=== PATIENT | male | born 1960 | race African-American/Black ===

== ENCOUNTER 2016-12-20 11:14 | Emergency (ER) | payer MEDICAID ==
[2016-12-20 11:49] LABS: Urine Bacteria Absent (Absent); Urine Bilirubin Negative (Negative); Urine Glucose Negative (Negative); Urine Nitrite Negative (Negative)
[2016-12-20 12:12] LABS: Benzodiazepine Urine Screen None Detected (None Detect)
[2016-12-20 12:31] LABS: Hematocrit 41 % (42-52); Hemoglobin 13.6 g/dl (14.0-18.0); Mean Corpuscular HGB Conc 33 g/dl (31-36); Mean Corpuscular Hemoglobin 29 pg (27-31); Mean Corpuscular Volume 89 fL (80-94); Mean Platelet Volume 8 um3 (7.4-10.4); Red Blood Count 4.63 10^6/ul (4.0-5.4); Red Cell Distribution Width 14 % (10.5-15); White Blood Count 6.7 10^3/ul (3.5-10.8)
[2016-12-20 12:42] LABS: ALT 18 U/L (7-52); AST 17 U/L (13-39); Albumin 4.3 g/dL (3.2-5.2); Alkaline Phosphatase 174 U/L (34-104); Anion Gap 3 mmol/L (2-11); Blood Urea Nitrogen 12 mg/dL (6-24); CO2 Carbon Dioxide 24 mmol/L (22-32); Calcium 9.4 mg/dL (8.6-10.3); Chloride 109 mmol/L (101-111); Globulin 3.4 g/dL (2-4); Glucose 112 mg/dL (70-100); Potassium 4.2 mmol/L (3.5-5.0); Sodium 136 mmol/L (133-145); Total Protein 7.7 g/dL (6.4-8.9)
[2016-12-20 12:50] LABS: Acetaminophen < 15 mcg/mL; Alcohol < 10 mg/dL (<10); Salicylate < 2.50 mg/dL (<30)
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
[2016-12-20 13:00] LABS: TSH (Thyroid Stimulating Horm) < 0.03 mcIU/mL (0.34-5.60)
[2016-12-20 13:15] VITALS: BP 136/85
== END 2016-12-20 13:13 | disposition home or self-care (01) ==
LOC: ED 11:14
DX: Z04.8 Encounter for examination and observation for other specified reasons (principal); Z87.891 Personal history of nicotine dependence
CPT/HCPCS: 36415; 80053; 80307; 80320; 80329; 81003; 81015; 84443; 85025; 87086; 99281; G0480

== ENCOUNTER 2018-02-08 06:23 | Emergency (ER) | payer MEDICARE, MEDICAID ==
--- OUTSIDE RECORDS SUMMARY | 2018-02-08 06:58 | XMS REPORT ---
:1960 External Reference #:[id number] Author Organization [facility] Address [address] [address] Phone [phone] Care Team Providers Name Role Phone Tomasa Doulgas MD Primary Care Physician Unavailable Payers Type Date Identification Numbers Payment Provider Subscriber Medicare Primary Policy Number: [id number] Medicare Trevor Campbell PayID: [id number] [address] [place] [address] Medigap Part B Expires: 2017 Policy Number: [id number] Medicaid Trevor Campbell Group Name: 1 1 [address] PayID: [id number] [place] [address] Medigap Part B Expires: 2017 Policy Number: Medicare Trevor Campbell [id number] PayID: [id number] [address] [place] [address] Medigap Part B Expires: 2016 Policy Number: Medicare Trevor Campbell [id number] PayID: [id number] [address] [place] [address] Medigap Part B Effective: 2016 Policy Number: Medicaid Trevor Campbell [id number] Expires: 2017 Group Name: 1 1 [address] PayID: [id number] [place] [address] Medigap Part B Effective: 2016 Policy Number: Medicaid Trevor Campbell [id number] Group Name: 1 1 [address] PayID: [id number] [place] [address] Problems Date Description Provider Status Onset: 08/27/2011 Electrocardiogram abnormal Baldomero Bean M.D. Onset: 08/27/2011 Benign essential hypertension Baldomero Bean M.D. Onset: 08/27/2011 Automatic implantable cardiac Susana Wilburn Active defibrillator in situ Margarita Onset: 04/16/2014 Cardiomyopathy Tomasa Douglas M.D. Active Note: non ischemic Onset: 04/16/2014 Impotence Tomasa Douglas M.D. Active Note: since 2012 Onset: 08/27/2014 Primary cardiomyopathy Cristi Taylor M.D. Active Onset: 08/27/2014 Tachycardia Cristi Taylor M.D. Active Onset: 08/27/2014 Ventricular flutter Cristi Taylor M.D. Active Onset: 03/04/2015 Subclinical hyperthyroidism Tomasa Douglas M.D. 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 Resolved Resolved: 04/16/2014 Onset: 04/09/2013 Dyspnea Susana Wilburn M.D. Resolved Resolved: 04/16/2014 Family History Date Family Member(s) Problem(s) Comments General Heart Disease Father due to Unknown Causes () Mother due to Unknown Causes () Social History Type Date Description Comments Marital Status Single Lives With Alone Occupation Disabled ETOH Use Denies alcohol use Recreational Drug Use Former Drug User crack cocaine X 20 yr quit 10/01/15 Smoking Patient is a former smoker Daily Caffeine Consumes on average 2 cups of decaff coffee per day Exercise Type/Frequency Does not exercise regularly Allergies, Adverse Reactions, Alerts Date Description Reaction Status Severity Comments 09/06/2007 NKDA active 09/06/2007 NKDA inactive Medications Medication Date Status Form Strength Qnty SIG Indications Ordering Provider Hydrocodone 01/24/ Active Solution 7.5-325mg/ 240ml 10ml-15m Meagan Bitartrate/Aceta 2018 15ML l by B. minophen mouth [place], every [employer] TECH 4-6 hours as needed for pain Methimazole 10/20/ Active Tablets 10mg 30tabs once a E05.90 Tomasa 2017 day Margarita Douglas Lisinopril 10/08/ Active Tablets 10mg 30tabs 1 by Tomasa 2015 mouth Stella, every M.D. day Omeprazole 04/05/ Active Capsules 40mg 180cap Take One K21.[address] grey Capsule Stella, By Mouth M.DSabrina Twice A Day Amlodipine / Active Tablets 10mg 30tabs take 1 Tomasa Besylate 0000 tablet Douglas, by mouth M.D. every day Metoprolol / Active Tablets ER 50mg 45tabs 1 by Qutaybeh Succinate ER 0000 24HR mouth am Asya Wilburn M.D. Meloxicam / Active Tablets 15mg 30tabs take 1 Tomasa 0000 tablet Douglas, by mouth M.D. once every day with food as needed for pain Spironolactone / Active Tablets 25mg 90tabs Take 1 Tomasa 0000 Tablet Douglas, By Mouth M.D. Every Day Digoxin / Active Tablets 125mcg 30tabs Take 1 Tomasa 0000 Tablet Douglas, By Mouth M.D. Every Day Methimazole 10/15/ Hx Tablets 10mg 90tabs 2 tab Tomasa 2015 - every 8 Stella, 10/20/ hrs M.D. 2017 Methimazole 10/08/ Hx Tablets 5mg 15 mg Tomasa 2015 - tid Stella, 10/15/ M.D. 2015 Ibuprofen 05/06/ Hx Tablets 800mg 90tabs 1 by Jluis 2015 - mouth Cristhian, 10/13/ three M.D. 2016 times a day as needed Methimazole 04/15/ Hx Tablets 5mg 30tabs take 1 Tomasa 2015 - tablet Stella, 10/08/ by mouth M.D. 2015 every day Methimazole 03/20/ Hx Tablets 5mg 30tabs 1 tab Tomasa 2014 - daily Stella, 12/11/ M.D. 2015 Hydrocodone-Acet 12/27/ Hx Tablets 10-325mg 60tabs 1 tab by Jluis aminokevin 2014 - mouth Cristhian, 04/05/ twice M.D. 2015 daily as needed [place] 12/03/ Hx Tablets 5-325mg 60tabs 1 by Benjie 2014 - mouth Ashley, 06/30/ every 6 M.D. 2015 hours as needed Bactrim DS 10/15/ Hx Tablets 800-160mg 28tabs 2 tabs Jluis 2013 - by mouth Cristhian, 12/25/ twice a M.D. 2015 day x 7 days Gabapentin 09/25/ Hx Capsules 300mg 60caps 1-2 tabs Jluis 2013 - po qhs Cristhian, 12/11/ M.D. 2016 Ibuprofen 07/05/ Hx Tablets 800mg 90tabs 1 by Jluis 2013 - mouth Cristhian, 12/11/ three M.D. 2016 times a day as needed [place] 06/24/ Hx Tablets 5-325mg 60tabs 1 by Jluis 2013 - mouth Cristhian, 04/05/ twice a M.D. 2015 day as needed Lisinopril 07/14/ Hx Tablets 20mg 90tabs take 1 Tomasa 2010 - tablet Douglas, 10/08/ by mouth M.D. 2016 every day Atenolol 11/27/ Hx Tablets 25mg 90tabs 1 PO qd Qutaybeh 2007 - [facility] Zantac 09/06/ Hx Capsules 150mg 180cap 1 PO bid Qutaybeh 2006 - s prn S. 07/14/ [facility] Lisinopril 09/06/ Hx Tablets 10mg 90tabs 1 PO qd Qutaybeh 2006 - S. 07/14/ [facility] Aldactone 09/06/ Hx Tablets 25mg 90tabs 1 po qd Qutaybeh 2006 - S. 07/14/ Magyd, 2010 M.D. Toprol XL 09/06/ Hx Tablets ER 25mg 30tabs one po Qutaybeh 2006 - 24HR qd S. 09/06/ Maghaydah, 2006 M.D. Digitek 09/06/ Hx Tablets 0.125mg 90tabs 1 po qd Qutaybeh 2006 - S. 02/20/ Akila, 2013 M.D. Toprol XL 09/06/ Hx Tablets ER 25mg 60tabs 1 po bid Qutaybeh 2006 - 24HR S. 09/06/ Akila, 2006 MSabrinaDSabrina Atenolol 09/06/ Hx Tablets 25mg 60tabs 1 PO bid Petertaybmic 2006 - S. 11/27/ Akila, 2007 MSabrinaDSabrina Spironolactone / Hx Tablets 25mg 1 po qd Unknown 0000 - 2010 Clobetasol / Hx Cream 0.05% 60gm apply to Unknown Propionate E 0000 - rash 2 x 02/20/ per day 2013 Q / Hx Tablets 600mg 90tabs 1 po q Unknown 0000 - 8hours 02/20/ prn 2013 Percocet 00/ Hx Tablets 5-325mg 40tabs 1-2 po Unknown 0000 - q4-6h 02/19/ prn pain 2012 Bactrim DS / Hx Tablets 800-160mg 14tabs 1 po bid Unknown 0000 - for 7 02/19/ days 2012 Bactrim DS / Hx Tablets 800-160mg 1 by Unknown 0000 - mouth 09/16/ twice a 2014 day x 6 wks Furosemide / Hx Tablets 20mg 60tabs Take 1 Tomasa 0000 - Tablet Stella, 12/12/ By Mouth M.D. 2015 Every Day Ranitidine HCL / Hx Capsules 150mg 60caps Take One Tomasa 0000 - Capsule Stella, 04/05/ By Mouth M.D. 2015 Twice A Day Bisoprolol / Hx Tablets 5mg 60tabs take 1 Tomasa Fumarate 0000 - tablet Stella, 10/08/ by mouth M.D. 2015 twice a day Immunizations CPT Code Status Date Vaccine Lot # [id number] Given 07/12/2017 Influenza Virus Vaccine, Quadrivalent, Split, Preservative Free [id number] Given 12/14/2016 Tdap - Tetanus/Diptheria/Acellular Pertussis [id number] Given 08/04/2016 Influenza Virus Vaccine, Quadrivalent, Split Virus, Im Use [id number] Given 07/03/2015 Fluzone Vaccine [id number] Given Unknown Pneumonia Vaccine Vital Signs Date Vital Result Comment 01/24/2018 Height 68 inches 5'8" Weight 162.00 lb Heart Rate 72 /min BP Systolic Sitting 124 mmHg BP Diastolic Sitting 80 mmHg Respiratory Rate 18 /min Body Temperature 97.9 F BMI (Body Mass Index) 24.6 kg/m2 01/10/2018 Height 68 inches 5'8" Weight 162.00 lb Heart Rate 60 /min BP Systolic Sitting 144 mmHg BP Diastolic Sitting 80 mmHg Respiratory Rate 16 /min Body Temperature 97.6 F BMI (Body Mass Index) 24.6 kg/m2 01/02/2018 Height 68 inches 5'8" Weight 162.00 lb W/Shoes Heart Rate 62 /min BP Systolic 130 mmHg L/Arm Reg Cuff BP Diastolic 80 mmHg L/Arm Reg Cuff BMI (Body Mass Index) 24.6 kg/m2 Ejection Fraction 40-45% Echocardiogram 01/14/2015 10/20/2017 Weight 158.50 lb Heart Rate 62 /min BP Systolic Sitting 136 mmHg BP Diastolic Sitting 82 mmHg O2 % BldC Oximetry 99 % 12/24/2016 Height 68 inches 5'8" Weight 148.00 lb w/shoes Heart Rate 62 /min BP Systolic Sitting 126 mmHg LA, regular BP Diastolic Sitting 80 mmHg LA, regular BMI (Body Mass Index) 22.5 kg/m2 Ejection Fraction 40-45% echo 01/14/15 12/13/2016 Weight 141.12 lb Heart Rate 68 /min BP Systolic Sitting 128 mmHg BP Diastolic Sitting 74 mmHg Body Temperature 96.8 F O2 % BldC Oximetry 98 % 10/13/2016 Weight 142.00 lb Heart Rate 86 /min BP Systolic Sitting 132 mmHg BP Diastolic Sitting 84 mmHg Respiratory Rate 15 /min Body Temperature 98.0 F O2 % BldC Oximetry 98 % 04/05/2016 Weight 140.00 lb Heart Rate 70 /min BP Systolic Sitting 132 mmHg BP Diastolic Sitting 78 mmHg Body Temperature 97.7 F O2 % BldC Oximetry 98 % 12/12/2015 Height 68 inches 5'8" Weight 149.00 lb w/shoes Heart Rate 76 /min BP Systolic Sitting 136 mmHg LA reg cuff BP Diastolic Sitting 82 mmHg LA reg cuff BMI (Body Mass Index) 22.7 kg/m2 Ejection Fraction 40-45 echo 01/14/15 10/24/2015 Height 68 inches 5'8" Weight 146.00 lb BMI (Body Mass Index) 22.2 kg/m2 09/16/2015 Height 68 inches 5'8" Weight 146.25 lb Heart Rate 72 /min BP Systolic Sitting 142 mmHg BP Diastolic Sitting 72 mmHg Respiratory Rate 14 /min Body Temperature 97.2 F BMI (Body Mass Index) 22.2 kg/m2 08/01/2015 Height 68 inches 5'8" Weight 146.00 lb Pain Level 12 BMI (Body Mass Index) 22.2 kg/m2 07/25/2015 Height 68 inches 5'8" Weight 146.00 lb Pain Level 10 10+ comes and goes BMI (Body Mass Index) 22.2 kg/m2 06/17/2015 Height 68 inches 5'8" Weight 146.50 lb Heart Rate 64 /min BP Systolic Sitting 120 mmHg BP Diastolic Sitting 70 mmHg Respiratory Rate 14 /min Body Temperature 97.2 F BMI (Body Mass Index) 22.3 kg/m2 06/13/2015 Height 68 inches 5'8" Weight 146.00 lb Pain Level 12 BMI (Body Mass Index) 22.2 kg/m2 04/25/2015 Height 68 inches 5'8" Weight 146.00 lb Pain Level 10 BMI (Body Mass Index) 22.2 kg/m2 03/18/2015 Height 68 inches 5'8" Weight 146.25 lb Heart Rate 58 /min BP Systolic Sitting 116 mmHg BP Diastolic Sitting 70 mmHg Respiratory Rate 14 /min Body Temperature 96.8 F BMI (Body Mass Index) 22.2 kg/m2 03/04/2015 Weight 141.00 lb Heart Rate 61 /min BP Systolic Sitting 122 mmHg BP Diastolic Sitting 56 mmHg 02/04/2015 Height 68 inches 5'8" Weight 130.00 lb Heart Rate 64 /min BP Systolic Sitting 112 mmHg BP Diastolic Sitting 68 mmHg Respiratory Rate 14 /min Body Temperature 97.0 F BMI (Body Mass Index) 19.8 kg/m2 01/23/2015 Height 68 inches 5'8" Weight 130.00 lb Pain Level 7 BMI (Body Mass Index) 19.8 kg/m2 12/31/2014 Height 68 inches 5'8" Weight 131.00 lb Heart Rate 68 /min BP Systolic Sitting 138 mmHg BP Diastolic Sitting 80 mmHg Respiratory Rate 14 /min Body Temperature 97.1 F BMI (Body Mass Index) 19.9 kg/m2 12/27/2014 Height 68 inches 5'8" Weight 130.00 lb Pain Level 10 BMI (Body Mass Index) 19.8 kg/m2 12/03/2014 Height 68 inches 5'8" Weight 130.00 lb Pain Level 10 BMI (Body Mass Index) 19.8 kg/m2 11/08/2014 Height 68 inches 5'8" Weight 130.00 lb Pain Level 8 BMI (Body Mass Index) 19.8 kg/m2 10/15/2014 Height 68 inches 5'8" Weight 130.00 lb Pain Level 10 BMI (Body Mass Index) 19.8 kg/m2 09/25/2014 Height 68 inches 5'8" Heart Rate 71 /min BP Systolic 132 mmHg BP Diastolic 81 mmHg 08/30/2014 Height 68 inches 5'8" Weight 123.00 lb Heart Rate 84 /min BMI (Body Mass Index) 18.7 kg/m2 08/29/2014 Height 68 inches 5'8" Weight 123.00 lb Heart Rate 84 /min BP Systolic Sitting 138 mmHg Ra, reg BP Diastolic Sitting 72 mmHg Ra, reg BMI (Body Mass Index) 18.7 kg/m2 08/16/2014 Height 68 inches 5'8" Weight 130.00 lb Body Temperature 98.0 F Pain Level 10 BMI (Body Mass Index) 19.8 kg/m2 08/06/2014 Height 68 inches 5'8" Weight 130.00 lb Body Temperature 98.1 F BMI (Body Mass Index) 19.8 kg/m2 07/23/2014 Height 68 inches 5'8" Weight 130.00 lb Heart Rate 66 /min Pain Level 10 BMI (Body Mass Index) 19.8 kg/m2 07/12/2014 Height 68 inches 5'8" Weight 130.00 lb Pain Level 10 BMI (Body Mass Index) 19.8 kg/m2 07/02/2014 Height 68 inches 5'8" Weight 130.00 lb Heart Rate 66 /min BMI (Body Mass Index) 19.8 kg/m2 06/24/2014 Height 68 inches 5'8" Weight 130.00 lb BMI (Body Mass Index) 19.8 kg/m2 04/11/2014 Height 68 inches 5'8" Weight 135.00 lb Heart Rate 76 /min BP Systolic Sitting 128 mmHg BP Diastolic Sitting 82 mmHg BMI (Body Mass Index) 20.5 kg/m2 02/20/2014 Height 68 inches 5'8" Weight 134.00 lb Heart Rate 76 /min BP Systolic Sitting 118 mmHg BP Diastolic Sitting 66 mmHg BMI (Body Mass Index) 20.4 kg/m2 04/09/2013 Height 68 inches 5'8" Weight 143.00 lb Heart Rate 84 /min BP Systolic Sitting 140 mmHg pt states took meds BP Diastolic Sitting 90 mmHg pt states took meds Respiratory Rate 16 /min BMI (Body Mass Index) 21.7 kg/m2 02/19/2013 Height 68 inches 5'8" Weight 145.00 lb Heart Rate 84 /min BP Systolic Sitting 146 mmHg BP Diastolic Sitting 98 mmHg Respiratory Rate 20 /min BMI (Body Mass Index) 22.0 kg/m2 04/07/2012 Height 68 inches 5'8" Weight 140.00 lb per pt Heart Rate 70 /min BP Systolic 138 mmHg BP Diastolic 88 mmHg BMI (Body Mass Index) 21.3 kg/m2 08/27/2011 Height 68 inches 5'8" Weight 142.00 lb Heart Rate 61 /min BP Systolic Sitting 144 mmHg L BP Diastolic Sitting 86 mmHg L BMI (Body Mass Index) 21.6 kg/m2 07/14/2011 Height 68 inches 5'8" Weight 131.00 lb Heart Rate 60 /min BP Systolic 140 mmHg BP Diastolic 72 mmHg BMI (Body Mass Index) 19.9 kg/m2 04/23/2010 Height 68 inches 5'8" Weight 135.00 lb Heart Rate 100 /min BP Systolic Sitting 150 mmHg BP Diastolic Sitting 86 mmHg BMI (Body Mass Index) 20.5 kg/m2 08/14/2009 Height 68 inches 5'8" Weight 138.00 lb Heart Rate 69 /min BP Systolic Sitting 158 mmHg BP Diastolic Sitting 100 mmHg BMI (Body Mass Index) 21.0 kg/m2 06/10/2008 Height 68 inches 5'8" Weight 130.00 lb Heart Rate 86 /min BP Systolic Sitting 142 mmHg BP Diastolic Sitting 86 mmHg Respiratory Rate 16 /min BMI (Body Mass Index) 19.8 kg/m2 12/07/2007 Height 68 inches 5'8" Weight 134.00 lb Heart Rate 88 /min BP Systolic Sitting 160 mmHg BP Diastolic Sitting 84 mmHg Respiratory Rate 16 /min BMI (Body Mass Index) 20.4 kg/m2 11/27/2007 Height 68 inches 5'8" Weight 136.00 lb Heart Rate 80 /min BP Systolic Sitting 190 mmHg L BP Diastolic Sitting 100 mmHg L BMI (Body Mass Index) 20.7 kg/m2 09/06/2007 Height 68 inches 5'8" Weight 135.00 lb Heart Rate 90 /min BP Systolic Sitting 140 mmHg BP Diastolic Sitting 82 mmHg BP Systolic Standing 130 mmHg BP Diastolic Standing 90 mmHg BP Systolic Lying Down 130 mmHg BP Diastolic Lying Down 90 mmHg Respiratory Rate 18 /min BMI (Body Mass Index) 20.5 kg/m2 Results Test Date Test Result H/L Range Note Laboratory test finding 09/13/2017 Digoxin 1.1 ng/ml 0.8-2.0 Comp Metabolic Panel 09/13/2017 Sodium 137 mmol/L 133-145 Potassium 4.3 mmol/L 3.5-5.0 Chloride 107 mmol/L 101-111 Co2 Carbon Dioxide 24 mmol/L 22-32 Anion Gap 6 mmol/L 2-11 Glucose 91 mg/dL 70-100 Blood Urea Nitrogen 17 mg/dL 6-24 Creatinine 1.29 mg/dL High 0.67-1.17 BUN/Creatinine Ratio 13.2 8-20 Calcium 9.0 mg/dL 8.6-10.3 Total Protein 7.2 g/dL 6.4-8.9 Albumin 4.3 g/dL 3.2-5.2 Globulin 2.9 g/dL 2-4 Albumin/Globulin Ratio 1.5 1-3 Total Bilirubin 0.70 mg/dL 0.2-1.0 Alkaline Phosphatase 88 U/L 34-104 Alt 9 U/L 7-52 Ast 16 U/L 13-39 Egfr Non- 57.4 >60 Egfr 73.8 >60 1 Lipid Profile (Trig/Chol/HDL) 09/13/2017 Triglycerides 59 mg/dL 2 Cholesterol 170 mg/dL 3 HDL Cholesterol 65.9 mg/dL 4 LDL Cholesterol 92 mg/dL 5 Testosterone Free & 09/13/2017 Free Testosterone ng/dl 6.80 ng/dL 3.87-14.7 6 Total Testosterone 340 ng/dL 240-950 7 Laboratory test finding 08/11/2017 Free T4 (Free 0.57 ng/dL Low 0.61-1.12 Thyroxine) Basic Metabolic Panel 08/11/2017 Sodium 134 mmol/L 133-145 Potassium 4.8 mmol/L 3.5-5.0 Chloride 103 mmol/L 101-111 Co2 Carbon Dioxide 25 mmol/L 22-32 Anion Gap 6 mmol/L 2-11 Glucose 91 mg/dL 70-100 Blood Urea Nitrogen 18 mg/dL 6-24 Creatinine 1.21 mg/dL High 0.67-1.17 BUN/Creatinine Ratio 14.9 8-20 Calcium 9.6 mg/dL 8.6-10.3 Egfr Non- 61.8 >60 Egfr 79.5 >60 8 Laboratory test finding 08/11/2017 TSH (Thyroid Stim Horm) 1.84 mcIU/mL 0.34-5.60 Laboratory test finding 08/11/2017 T3 Free 3.20 pg/mL 2.5-3.9 CBC Auto Diff 12/13/2016 White Blood Count 6.5 10^3/uL 3.5-10.8 Red Blood Count 4.49 10^6/uL 4.0-5.4 Hemoglobin 13.1 g/dL Low 14.0-18.0 Hematocrit 39 % Low 42-52 Mean Corpuscular Volume 88 fL 80-94 Mean Corpuscular Hemoglobin 29 pg 27-31 Mean Corpuscular HGB Conc 33 g/dL 31-36 Red Cell Distribution Width 14 % 10.5-15 Platelet Count 304 10^3/uL 150-450 Mean Platelet Volume 9 um3 7.4-10.4 Abs Neutrophils 3.6 10^3/uL 1.5-7.7 Abs Lymphocytes 2.1 10^3/uL 1.0-4.8 Abs Monocytes 0.6 10^3/uL 0-0.8 Abs Eosinophils 0.1 10^3/uL 0-0.6 Abs Basophils 0 10^3/uL 0-0.2 Abs Nucleated RBC 0 10^3/uL Granulocyte % 56.1 % 38-83 Lymphocyte % 33.1 % 25-47 Monocyte % 8.9 % 1-9 Eosinophil % 1.6 % 0-6 Basophil % 0.3 % 0-2 Nucleated Red Blood Cells % 0.1 Laboratory test finding 12/13/2016 Free T4 (Free 1.30 ng/dL High 0.61- 1.12 Thyroxine) TSH (Thyroid Stim Horm) 0.06 mcIU/mL Low 0.34-5.60 T3 Free 4.50 pg/mL High 2.5-3.9 Hepatitis C Antibody Nonreactive Nonreactive HIV 1/2 AB Evaluation 12/13/2016 HIV 1 2 Antibody Nonreactive Nonreactive 9 Laboratory test finding 12/13/2016 Miscellaneous Test See Comment 10 CBC Auto Diff 10/14/2016 White Blood Count 6.3 10^3/uL 3.5-10.8 Red Blood Count 4.77 10^6/uL 4.0-5.4 Hemoglobin 13.4 g/dL Low 14.0-18.0 Hematocrit 41 % Low 42-52 Mean Corpuscular Volume 86 fL 80-94 Mean Corpuscular Hemoglobin 28 pg 27-31 Mean Corpuscular HGB Conc 33 g/dL 31-36 Red Cell Distribution Width 14 % 10.5-15 Platelet Count 292 10^3/uL 150-450 Mean Platelet Volume 8 um3 7.4-10.4 Abs Neutrophils 3.8 10^3/uL 1.5-7.7 Abs Lymphocytes 1.8 10^3/uL 1.0-4.8 Abs Monocytes 0.6 10^3/uL 0-0.8 Abs Eosinophils 0.1 10^3/uL 0-0.6 Abs Basophils 0 10^3/uL 0-0.2 Abs Nucleated RBC 0.01 10^3/uL Granulocyte % 60.1 % 38-83 Lymphocyte % 28.1 % 25-47 Monocyte % 9.9 % High 1-9 Eosinophil % 1.2 % 0-6 Basophil % 0.7 % 0-2 Nucleated Red Blood Cells % 0.1 Laboratory test 10/14/2016 TSH (Thyroid Stim < 0.03 mcIU/mL Low 0.34- 5.60 finding Horm) T3 Free 9.40 pg/mL High 2.5-3.9 Free T4 (Free Thyroxine) 3.44 ng/dL High 0.61-1.12 Comp Metabolic Panel 10/14/2016 Sodium 137 mmol/L 133-145 Potassium 4.2 mmol/L 3.5-5.0 Chloride 105 mmol/L 101-111 Co2 Carbon Dioxide 26 mmol/L 22-32 Anion Gap 6 mmol/L 2-11 Glucose 104 mg/dL High 70-100 Blood Urea Nitrogen 11 mg/dL 6-24 Creatinine 1.03 mg/dL 0.67-1.17 BUN/Creatinine Ratio 10.7 8-20 Calcium 9.8 mg/dL 8.6-10.3 Total Protein 7.8 g/dL 6.4-8.9 Albumin 4.6 g/dL 3.2-5.2 Globulin 3.2 g/dL 2-4 Albumin/Globulin Ratio 1.4 1-3 Total Bilirubin 0.70 mg/dL 0.2-1.0 Alkaline Phosphatase 170 U/L High 34-104 Alt 25 U/L 7-52 Ast 19 U/L 13-39 Egfr Non- 74.7 >60 Egfr 96.1 >60 11 Laboratory test 08/27/2016 Troponin-I (TnI) 0.01 ng/mL <0.03 12 finding Urine Drug SCR ED 08/27/2016 Amphetamine Ur Screen None Detected None Detect [facility] Barbiturates Urine Screen None Detected None Detect Benzodiazepine Urine Screen None Detected None Detect Urine Cannabinoids Screen None Detected None Detect Urine Cocaine Screen None Detected None Detect Urine Opiates Screen None Detected None Detect Urine Phencyclidine Screen None Detected None Detect 13 Inr/Protime 08/27/2016 Inr 0.97 0.89-1.11 Laboratory test finding 08/27/2016 Partial Thrombo Time 31.1 seconds 26.0 -36.3 PTT CBC Auto Diff 08/27/2016 White Blood Count 5.7 10^3/uL 3.5-10.8 Red Blood Count 4.96 10^6/uL 4.0-5.4 Hemoglobin 13.6 g/dL Low 14.0-18.0 Hematocrit 41 % Low 42-52 Mean Corpuscular Volume 83 fL 80-94 Mean Corpuscular Hemoglobin 28 pg 27-31 Mean Corpuscular HGB Conc 33 g/dL 31-36 Red Cell Distribution Width 13 % 10.5-15 Platelet Count 326 10^3/uL 150-450 Mean Platelet Volume 9 um3 7.4-10.4 Abs Neutrophils 3.4 10^3/uL 1.5-7.7 Abs Lymphocytes 1.6 10^3/uL 1.0-4.8 Abs Monocytes 0.5 10^3/uL 0-0.8 Abs Eosinophils 0.1 10^3/uL 0-0.6 Abs Basophils 0.1 10^3/uL 0-0.2 Abs Nucleated RBC 0 10^3/uL Granulocyte % 59.3 % 38-83 Lymphocyte % 28.7 % 25-47 Monocyte % 9.4 % High 1-9 Eosinophil % 1.6 % 0-6 Basophil % 1.0 % 0-2 Nucleated Red Blood Cells % 0.1 Comp Metabolic Panel 08/27/2016 Sodium 135 mmol/L 133-145 Potassium 4.1 mmol/L 3.5-5.0 Chloride 106 mmol/L 101-111 Co2 Carbon Dioxide 22 mmol/L 22-32 Anion Gap 7 mmol/L 2-11 Glucose 98 mg/dL 70-100 Blood Urea Nitrogen 15 mg/dL 6-24 Creatinine 0.83 mg/dL 0.67-1.17 BUN/Creatinine Ratio 18.1 8-20 Calcium 10.1 mg/dL 8.6-10.3 Total Protein 7.6 g/dL 6.4-8.9 Albumin 4.2 g/dL 3.2-5.2 Globulin 3.4 g/dL 2-4 Albumin/Globulin Ratio 1.2 1-3 Total Bilirubin 0.70 mg/dL 0.2-1.0 Alkaline Phosphatase 150 U/L High 34-104 Alt 37 U/L 7-52 Ast 22 U/L 13-39 Egfr Non- 95.8 >60 Egfr 123.3 >60 14 Laboratory test finding 08/27/2016 Troponin-I (TnI) 0.01 ng/mL <0.03 15 Digoxin 0.7 ng/ml Low 0.8-2.0 Thyroxine 25.51 ?g/dL High 6.09-12.23 TSH (Thyroid Stim Horm) 0.03 mcIU/mL Low 0.34-5.60 Free T4 (Free Thyroxine) 4.63 ng/dL High 0.61-1.12 T3 Free 10.40 pg/mL High 2.5-3.9 T3 Total 2.39 ng/mL High 0.87-1.78 Laboratory test 04/15/2016 TSH (Thyroid Stim < 0.03 Low 0.34-5.60 16, 17 finding Horm) ?IU/mL T3 Free 16.10 pg/mL High 2.5-3.9 16, 18 Free T4 (Free Thyroxine) 5.03 ng/dL High 0.61-1.12 16, 19 Basic Metabolic Panel 04/15/2016 Sodium 136 mmol/L 133-145 16 Potassium 4.4 mmol/L 3.5-5.0 16 Chloride 106 mmol/L 101-111 16 Co2 Carbon Dioxide 24 mmol/L 22-32 16 Anion Gap 6 mmol/L 2-11 16 Glucose 86 mg/dL 70-100 16 Blood Urea Nitrogen 16 mg/dL 6-24 16 Creatinine 0.95 mg/dL 0.67-1.17 16 BUN/Creatinine Ratio 16.8 8-20 16 Calcium 9.7 mg/dL 8.6-10.3 16 Egfr Non- 82.0 >60 16 Egfr 105.5 >60 16, 20 Lipid Profile (Trig/Chol/HDL) 04/15/2016 Triglycerides 51 mg/dL 16, 21 Cholesterol 109 mg/dL 16, 22 HDL Cholesterol 42.6 mg/dL 16, 23 LDL Cholesterol 56 mg/dL 16, 24 Laboratory test 10/06/2015 C Reactive Protein < 1.00 mg/L < 5.00 25 finding Laboratory test 07/05/2015 C Reactive Protein 5.90 mg/L High < 5.00 26 finding Basic Metabolic Panel 07/05/2015 Sodium 134 mmol/L 133-145 Potassium 4.6 mmol/L 3.5-5.0 Chloride 103 mmol/L 101-111 Co2 Carbon Dioxide 26 mmol/L 22-32 Anion Gap 5 mmol/L 2-11 Glucose 96 mg/dL 70-100 Blood Urea Nitrogen 14 mg/dL 6-24 Creatinine 1.30 mg/dL High 0.67-1.17 BUN/Creatinine Ratio 10.8 8-20 Calcium 9.3 mg/dL 8.6-10.3 Egfr Non- 57.3 >60 Egfr 73.7 >60 27 GC/Chlamydia Amplified Rna 05/16/2015 Chlamydia trachomatis Rna Negative Negative Neisseria gonorrhoeae (GC) Rna Negative Negative 28 Hepatitis B Sigrid AB Titer 05/16/2015 Hepatitis B Surface AB Reactive Nonreactive Hep B Surf AB Level 59.89 mIU/mL <12 29 Laboratory test finding 05/16/2015 Hepatitis B Surface Ag Nonreactive Nonreactive Hepatitis C Antibody Nonreactive Nonreactive HIV 1/2 AB Evaluation 05/16/2015 HIV 1 2 Antibody Nonreactive Nonreactive 30 Laboratory test 05/16/2015 TSH (Thyroid Stim 0.03 ?IU/mL Low 0.34-5.60 finding Horm) T3 Free 2.90 pg/mL 2.5-3.9 Free T4 (Free Thyroxine) 1.03 ng/mL 0.61-1.12 T3 Total 0.94 ng/mL 0.87-1.78 Thyroperoxidase AB 5.38 IU/mL <9 CBC Auto Diff 04/14/2015 White Blood Count 5.1 10^3/uL 4.8-10.8 Red Blood Count 3.82 10^6/uL Low 4.0-5.4 Hemoglobin 11.8 g/dL Low 14.0-18.0 Hematocrit 37 % Low 42-52 Mean Corpuscular Volume 96 fL High 80-94 Mean Corpuscular Hemoglobin 31 pg 27-31 Mean Corpuscular HGB Conc 32 g/dL 31-36 Red Cell Distribution Width 14 % 10.5-15 Platelet Count 291 10^3/uL 150-450 Mean Platelet Volume 8 um3 7.4-10.4 Abs Neutrophils 2.9 10^3/uL 1.5-7.7 Abs Lymphocytes 1.5 10^3/uL 1.0-4.8 Abs Monocytes 0.6 10^3/uL 0-0.8 Abs Eosinophils 0.1 10^3/uL 0-0.6 Abs Basophils 0 10^3/uL 0-0.2 Abs Nucleated RBC 0.01 10^3/uL Granulocyte % 56.6 % 38-83 Lymphocyte % 28.5 % 25-47 Monocyte % 12.4 % High 1-9 Eosinophil % 2.1 % 0-6 Basophil % 0.4 % 0-2 Nucleated Red Blood Cells % 0.1 Comp Metabolic Panel 04/14/2015 Sodium 138 mmol/L 133-145 Potassium 4.7 mmol/L 3.5-5.0 Chloride 109 mmol/L 101-111 Co2 Carbon Dioxide 23 mmol/L 22-32 Anion Gap 6 mmol/L 2-11 Glucose 97 mg/dL 70-100 Blood Urea Nitrogen 10 mg/dL 6-24 Creatinine 1.18 mg/dL High 0.67-1.17 BUN/Creatinine Ratio 8.5 8-20 Calcium 9.2 mg/dL 8.6-10.3 Total Protein 6.9 g/dL 6.4-8.9 Albumin 4.1 g/dL 3.2-5.2 Globulin 2.8 g/dL 2-4 Albumin/Globulin Ratio 1.5 1-3 Total Bilirubin 0.50 mg/dL 0.2-1.0 Alkaline Phosphatase 80 U/L 34-104 Alt 9 U/L 7-52 Ast 14 U/L 13-39 Egfr Non- 64.1 >60 Egfr 82.4 >60 31 Laboratory test finding 03/31/2015 Potassium 3.9 mmol/L 3.5-5.0 CBC Auto Diff 03/18/2015 White Blood Count 5.5 10^3/uL 4.8-10.8 Red Blood Count 4.01 10^6/uL 4.0-5.4 Hemoglobin 12.7 g/dL Low 14.0-18.0 Hematocrit 38 % Low 42-52 Mean Corpuscular Volume 95 fL High 80-94 Mean Corpuscular Hemoglobin 32 pg High 27-31 Mean Corpuscular HGB Conc 34 g/dL 31-36 Red Cell Distribution Width 15 % 10.5-15 Platelet Count 303 10^3/uL 150-450 Mean Platelet Volume 8 um3 7.4-10.4 Abs Neutrophils 2.8 10^3/uL 1.5-7.7 Abs Lymphocytes 1.9 10^3/uL 1.0-4.8 Abs Monocytes 0.6 10^3/uL 0-0.8 Abs Eosinophils 0.1 10^3/uL 0-0.6 Abs Basophils 0 10^3/uL 0-0.2 Abs Nucleated RBC 0 10^3/uL Granulocyte % 51.5 % 38-83 Lymphocyte % 34.7 % 25-47 Monocyte % 11.4 % High 1-9 Eosinophil % 2.0 % 0-6 Basophil % 0.4 % 0-2 Nucleated Red Blood Cells % 0.1 Comp Metabolic Panel 03/18/2015 Sodium 131 mmol/L Low 133-145 Potassium 5.5 mmol/L High 3.5-5.0 Chloride 104 mmol/L 101-111 Co2 Carbon Dioxide 22 mmol/L 22-32 Anion Gap 5 mmol/L 2-11 Glucose 92 mg/dL 70-100 Blood Urea Nitrogen 25 mg/dL High 6-24 Creatinine 2.00 mg/dL High 0.67-1.17 BUN/Creatinine Ratio 12.5 8-20 Calcium 9.5 mg/dL 8.6-10.3 Total Protein 7.6 g/dL 6.4-8.9 Albumin 4.7 g/dL 3.2-5.2 Globulin 2.9 g/dL 2-4 Albumin/Globulin Ratio 1.6 1-3 Total Bilirubin 0.50 mg/dL 0.2-1.0 Alkaline Phosphatase 95 U/L 34-104 Alt 13 U/L 7-52 Ast 19 U/L 13-39 Egfr Non- 34.9 >60 Egfr 44.8 >60 32 Laboratory test finding 03/18/2015 Digoxin 1.4 ng/ml 0.8-2.0 Thyroxine 8.08 ?g/dL 6.09-12.23 TSH (Thyroid Stim Horm) 0.03 ?IU/mL Low 0.34-5.60 T3 Free 3.10 pg/mL 2.5-3.9 Free T4 (Free Thyroxine) 1.03 ng/mL 0.61-1.12 Laboratory test finding 03/18/2015 C Reactive Protein < 1.00 mg/L &lt ; 5.00 33 Laboratory test finding 02/07/2015 C Reactive Protein < 1.00 mg/L &lt ; 5.00 34 Basic Metabolic Panel 02/07/2015 Sodium 132 mmol/L Low 133-145 Potassium 5.2 mmol/L High 3.5-5.0 Chloride 103 mmol/L 101-111 Co2 Carbon Dioxide 23 mmol/L 22-32 Anion Gap 6 mmol/L 2-11 Glucose 93 mg/dL 70-100 Blood Urea Nitrogen 17 mg/dL 6-24 Creatinine 1.66 mg/dL High 0.67-1.17 BUN/Creatinine Ratio 10.2 8-20 Calcium 9.4 mg/dL 8.6-10.3 Egfr Non- 43.2 >60 Egfr 55.6 >60 35 Laboratory test finding 02/07/2015 Free T4 0.97 ng/mL 0.61-1.12 Total T3 0.94 ng/mL 0.87-1.78 Free T3 2.90 pg/mL 2.5-3.9 TSH (Thyroid Stimulating Horm) < 0.03 IU/mL Low 0.34-5.60 Thyroid Stimulating Immunoglob <1.0 TSIindex <=1.3 36 CBC Auto Diff 01/17/2015 White Blood Count 7.0 10^3/uL 4.8-10.8 Red Blood Count 4.07 10^6/uL 4.0-5.4 Hemoglobin 12.3 g/dL Low 14.0-18.0 Hematocrit 36 % Low 42-52 Mean Corpuscular Volume 89 fL 80-94 Mean Corpuscular Hemoglobin 30 pg 27-31 Mean Corpuscular HGB Conc 34 g/dL 31-36 Red Cell Distribution Width 15 % 10.5-15 Platelet Count 378 10^3/uL 150-450 Mean Platelet Volume 7 um3 Low 7.4-10.4 Abs Neutrophils 4.4 10^3/uL 1.5-7.7 Abs Lymphocytes 1.8 10^3/uL 1.0-4.8 Abs Monocytes 0.7 10^3/uL 0-0.8 Abs Eosinophils 0.1 10^3/uL 0-0.6 Abs Basophils 0 10^3/uL 0-0.2 Abs Nucleated RBC 0 10^3/uL Granulocyte % 62.6 % 38-83 Lymphocyte % 25.8 % 25-47 Monocyte % 9.7 % High 1-9 Eosinophil % 1.5 % 0-6 Basophil % 0.4 % 0-2 Nucleated Red Blood Cells % 0.1 CBC Auto Diff 01/02/2015 White Blood Count 6.3 10^3/uL 4.8-10.8 Red Blood Count 4.27 10^6/uL 4.0-5.4 Hemoglobin 12.4 g/dL Low 14.0-18.0 Hematocrit 39 % Low 42-52 Mean Corpuscular Volume 90 fL 80-94 Mean Corpuscular Hemoglobin 29 pg 27-31 Mean Corpuscular HGB Conc 32 g/dL 31-36 Red Cell Distribution Width 15 % 10.5-15 Platelet Count 400 10^3/uL 150-450 Mean Platelet Volume 8 um3 7.4-10.4 Abs Neutrophils 3.1 10^3/uL 1.5-7.7 Abs Lymphocytes 2.4 10^3/uL 1.0-4.8 Abs Monocytes 0.6 10^3/uL 0-0.8 Abs Eosinophils 0.1 10^3/uL 0-0.6 Abs Basophils 0 10^3/uL 0-0.2 Abs Nucleated RBC 0 10^3/uL Granulocyte % 49.3 % 38-83 Lymphocyte % 38.6 % 25-47 Monocyte % 10.2 % High 1-9 Eosinophil % 1.3 % 0-6 Basophil % 0.6 % 0-2 Nucleated Red Blood Cells % 0.1 Comp Metabolic Panel 01/02/2015 Sodium 130 mmol/L Low 133-145 Potassium 5.4 mmol/L High 3.5-5.0 Chloride 101 mmol/L 101-111 Co2 Carbon Dioxide 23 mmol/L 22-32 Anion Gap 6 mmol/L 2-11 Glucose 110 mg/dL High 70-100 Blood Urea Nitrogen 20 mg/dL 6-24 Creatinine 1.60 mg/dL High 0.67-1.17 BUN/Creatinine Ratio 12.5 8-20 Calcium 9.5 mg/dL 8.6-10.3 Total Protein 7.7 g/dL 6.4-8.9 Albumin 4.3 g/dL 3.2-5.2 Globulin 3.4 g/dL 2-4 Albumin/Globulin Ratio 1.3 1-3 Total Bilirubin 0.30 mg/dL 0.2-1.0 Alkaline Phosphatase 118 U/L High 34-104 Alt 11 U/L 7-52 Ast 15 U/L 13-39 Egfr Non- 45.3 >60 Egfr 58.2 >60 37 Laboratory test finding 01/02/2015 C Reactive Protein 2.46 mg/L < 5.00 38 Wound Culture/Sensi 12/16/2014 Wound/Misc Culture-Gram (SEE NOTE) 39 Stain Laboratory test finding 12/09/2014 Troponin I 0.01 ng/mL <0.03 40 CBC Auto Diff 12/09/2014 White Blood Count 9.1 10^3/uL 4.8-10.8 Red Blood Count 3.98 10^6/uL Low 4.0-5.4 Hemoglobin 11.7 g/dL Low 14.0-18.0 Hematocrit 35 % Low 42-52 Mean Corpuscular Volume 88 fL 80-94 Mean Corpuscular Hemoglobin 29 pg 27-31 Mean Corpuscular HGB Conc 34 g/dL 31-36 Red Cell Distribution Width 15 % 10.5-15 Platelet Count 419 10^3/uL 150-450 Mean Platelet Volume 7 um3 Low 7.4-10.4 Abs Neutrophils 6.0 10^3/uL 1.5-7.7 Abs Lymphocytes 1.9 10^3/uL 1.0-4.8 Abs Monocytes 1.0 10^3/uL High 0-0.8 Abs Eosinophils 0.1 10^3/uL 0-0.6 Abs Basophils 0 10^3/uL 0-0.2 Abs Nucleated RBC 0 10^3/uL Granulocyte % 66.0 % 38-83 Lymphocyte % 21.4 % Low 25-47 Monocyte % 10.8 % High 1-9 Eosinophil % 1.4 % 0-6 Basophil % 0.4 % 0-2 Nucleated Red Blood Cells % 0 Inr/Protime 12/09/2014 Inr 0.97 0.78-1.07 41 Laboratory test finding 12/09/2014 Activated Partial 32.6 seconds 24.0- 36.1 Thrombo Time B Type Natriuretic Peptide 60 pg/mL 42 CKMB 12/09/2014 CKMB ng/mL 1.2 ng/mL 0.6-6.3 Comp Metabolic Panel 12/09/2014 Sodium 135 mmol/L 133-145 Potassium 3.8 mmol/L 3.5-5.0 Chloride 103 mmol/L 101-111 Co2 Carbon Dioxide 26 mmol/L 22-32 Anion Gap 6 mmol/L 2-11 Glucose 104 mg/dL High 70-100 Blood Urea Nitrogen 11 mg/dL 6-24 Creatinine 1.08 mg/dL 0.67-1.17 BUN/Creatinine Ratio 10.2 8-20 Calcium 9.8 mg/dL 8.6-10.3 Total Protein 8.1 g/dL 6.4-8.9 Albumin 4.0 g/dL 3.2-5.2 Globulin 4.1 g/dL High 2-4 Albumin/Globulin Ratio 1.0 1-3 Total Bilirubin 0.30 mg/dL 0.2-1.0 Alkaline Phosphatase 125 U/L High 34-104 Alt 9 U/L 7-52 Ast 13 U/L 13-39 Egfr Non- 71.3 >60 Egfr 91.6 >60 43 Laboratory test finding 12/09/2014 Troponin I 0.01 ng/mL <0.03 44 Laboratory test finding 12/09/2014 Magnesium 2.1 mg/dL 1.9-2.7 Creatine Kinase 94 U/L 10-223 Laboratory test finding 09/09/2014 TSH (Thyroid Stimulating 0.03 IU/mL Low 0.34-5.60 Horm) Free T3 7.10 pg/mL High 2.5-3.9 Free T4 3.16 ng/mL High 0.61-1.12 Thyroglobulin Tumor 09/09/2014 Thyroglobulin Antibody <1.8 IU/mL < 4.0 Marker Thyroglobulin Tumor Marker 44 ng/mL 45 Thyroglobulin Interpretation See Comment 46 Laboratory test finding 09/09/2014 Thyroid Peroxidase 12.19 IU/mL High &lt ;9 Antibodies CBC Auto Diff 09/03/2014 White Blood Count 11.7 10^3/uL High 4.8-10.8 Red Blood Count 3.80 10^6/uL Low 4.0-5.4 Hemoglobin 10.6 g/dL Low 14.0-18.0 Hematocrit 33 % Low 42-52 Mean Corpuscular Volume 86 fL 80-94 Mean Corpuscular Hemoglobin 28 pg 27-31 Mean Corpuscular HGB Conc 32 g/dL 31-36 Red Cell Distribution Width 14 % 10.5-15 Platelet Count 751 10^3/uL High 150-450 Mean Platelet Volume 8 um3 7.4-10.4 Abs Neutrophils 7.9 10^3/uL High 1.5-7.7 Abs Lymphocytes 2.4 10^3/uL 1.0-4.8 Abs Monocytes 1.3 10^3/uL High 0-0.8 Abs Eosinophils 0.1 10^3/uL 0-0.6 Abs Basophils 0 10^3/uL 0-0.2 Abs Nucleated RBC 0 10^3/uL Granulocyte % 67.4 % 38-83 Lymphocyte % 20.4 % Low 25-47 Monocyte % 10.8 % High 1-9 Eosinophil % 1.1 % 0-6 Basophil % 0.3 % 0-2 Nucleated Red Blood Cells % 0 Laboratory test finding 09/03/2014 Digoxin 0.7 ng/ml Low 0.8-2.0 Magnesium 2.0 mg/dL 1.9-2.7 TSH (Thyroid Stimulating Horm) 0.05 IU/mL Low 0.34-5.60 Free T4 2.52 ng/mL High 0.61-1.12 Basic Metabolic Panel 09/03/2014 Sodium 137 mmol/L 133-145 Potassium 3.9 mmol/L 3.5-5.0 47 Chloride 103 mmol/L 101-111 Co2 Carbon Dioxide 25 mmol/L 22-32 Anion Gap 9 mmol/L 2-11 Glucose 77 mg/dL 70-100 Blood Urea Nitrogen 13 mg/dL 6-24 Creatinine 1.20 mg/dL High 0.67-1.17 BUN/Creatinine Ratio 10.8 8-20 Calcium 9.9 mg/dL 8.6-10.3 Egfr Non- 63.1 >60 Egfr 81.1 >60 48 Laboratory test finding 08/16/2014 Anaerobic Culture (SEE NOTE) 49 Wound Culture/Sensi 08/16/2014 Wound/Misc Culture-Gram Stain (SEE NOTE) 50 1 Because ethnic data is not always readily available, this report includes an eGFR for both -Americans and non- Americans. The National Kidney Disease Education Program (NKDEP) does not endorse the use of the MDRD equation for patients that are not between the ages of 18 and 70, are , have extremes of body size, muscle mass, or nutritional status, or are non- or non-. According to the National Kidney Foundation, irrespective of diagnosis, the stage of the disease is based on the level of kidney function: Stage Description GFR(mL/min/1.73 m(2)) 1 Kidney damage with normal or decreased GFR 90 2 Kidney damage with mild decrease in GFR 60-89 3 Moderate decrease in GFR 30-59 4 Severe decrease in GFR 15-29 5 Kidney failure <15 (or dialysis) 2 Desirable: <150 Borderline High: 150-199 High: 200-499 Very High: >500 3 Desirable: <200 Borderline High: 200-239 High: >239 4 Low: <40 Desirable: 40-60 High: >60 5 Desirable: <100 Near Optimal: 100-129 Borderline High: 130-159 High: 160-189 Very High: >189 6 ADDITIONAL INFORMATION Testing performed by [facility]. This test was developed and its performance characteristics determined by [facility] in a manner consistent with CLIA requirements. This test has not been cleared or approved by the U.S. Food and Drug Administration. 7 ADDITIONAL INFORMATION Testing performed by Liquid Chromatography-Tandem Mass Spectrometry (LC-MS/MS). This test was developed and its performance characteristics determined by [facility] in a manner consistent with CLIA requirements. This test has not been cleared or approved by the U.S. Food and Drug Administration. Test Performed by: [facility] [address], [place] [address] 8 Because ethnic data is not always readily available, this report includes an eGFR for both -Americans and non- Americans. The National Kidney Disease Education Program (NKDEP) does not endorse the use of the MDRD equation for patients that are not between the ages of 18 and 70, are , have extremes of body size, muscle mass, or nutritional status, or are non- or non-. According to the National Kidney Foundation, irrespective of diagnosis, the stage of the disease is based on the level of kidney function: Stage Description GFR(mL/min/1.73 m(2)) 1 Kidney damage with normal or decreased GFR 90 2 Kidney damage with mild decrease in GFR 60-89 3 Moderate decrease in GFR 30-59 4 Severe decrease in GFR 15-29 5 Kidney failure <15 (or dialysis) 9 It is recognized that currently available assays for the detection of antibodies to HIV-1 and/or HIV-2 may not detect all infected individuals. HIV antibodies may be undetectable in some stages of the infection and in some clinical conditions. The performance of this assay has not been established for populations of infants or children. Assayed by Chemiluminescence Microparticle Immunoassay on the Siemens Advia Centaur CP. Values obtained with different methods or kits cannot be used interchangeably.The diagnostic specificity of the ADVIA Centaur 1/O/2 Enhanced assay in the low risk population was 99.90% (6052/6058) with a 95% confidence interval of 99.78 to 99.96%. 10 Procedure Result Units Ref Interval Amphetamines, S/P, screen Negative ng/mL Cutoff 30 Methamphetamine, S/P, screen Negative ng/mL Cutoff 30 Barbiturates, S/P, screen Negative ng/mL Cutoff 75 Benzodiazepines, S/P, screen Negative ng/mL Cutoff 75 Buprenorphine, S/P, screen Negative ng/mL Cutoff 1 Cannabinoids, S/P, screen Negative ng/mL Cutoff 30 Cocaine, S/P, Screen Negative ng/mL Cutoff 30 Methadone, S/P, screen Negative ng/mL Cutoff 40 Opiates, S/P, screen Negative ng/mL Cutoff 30 Oxycodone, S/P, screen Negative ng/mL Cutoff 30 Phencyclidine, S/P, Screen Negative ng/mL Cutoff 15 Drug Screen Comments, Serum or Plasma See Note Drug Screen Comments, Serum or Plasma: INTERPRETIVE INFORMATION: Drug Screen 9 Panel, Serum or Plasma - Immunoassay Screen with Reflex to Mass Spectrometry Confirmation/Quantitation 1. Methodology: Qualitative Immunoassay Screen 2. Drugs/Drug classes reported as "Positive" are automatically reflexed to mass spectrometry confirmation/quantitation testing. An immuncassay unconfirmed positive screen result may be useful for medical purposes but does not meet forensic standards. 3. The absence of expected drug(s) and/or drug metabolite(s) may indicate non-compliance, inappropriate timing of specimen collection relative to drug administration, poor drug absorption, or limitations of testing. The concentration at which the screening test can detect a drug or metabolite varies within a drug class. Specimens for which drugs or drug classes are detected by the screen are automatically reflexed to a second, more specific technology (mass spectrometry). The concentration value must be greater than or equal to the cutoff to be reported as positive. Interpretive questions should be directed to the laboratory. 4. For medical purposes only; not valid for forensic use. Test developed and characteristics determined by [facility]. See Compliance Statement B: [employer]MY[facility]/CS Test Performed by: [facility] [address] [place] [address] [email or web address] Ramon Mclaughlin MD - Director of Laboratories 11 Because ethnic data is not always readily available, this report includes an eGFR for both -Americans and non- Americans. The National Kidney Disease Education Program (NKDEP) does not endorse the use of the MDRD equation for patients that are not between the ages of 18 and 70, are , have extremes of body size, muscle mass, or nutritional status, or are non- or non-. According to the National Kidney Foundation, irrespective of diagnosis, the stage of the disease is based on the level of kidney function: Stage Description GFR(mL/min/1.73 m(2)) 1 Kidney damage with normal or decreased GFR 90 2 Kidney damage with mild decrease in GFR 60-89 3 Moderate decrease in GFR 30-59 4 Severe decrease in GFR 15-29 5 Kidney failure <15 (or dialysis) 12 Reference Range and Interpretation: TnI (ng/mL) Interpretation Less Than 0.03 ng/mL Not supportive of diagnosis of [place] 0.03 - 0.50 ng/mL Indeterminate: suggest serial studies if clinically indicated. Greater than 0.5 ng/mL Consistent with diagnosis of [place] 13 The urine specimen was tested at the listed cutoffs: Drug class test level (ng/mL) Amphetamines 500 Barbiturates 200 Benzodiazepine metabolites 200 Cocaine metabolites 150 Cannabinoids 50 Opiates 300 Pcp 25 Specimen was received without chain of custody. Results should be used for medical purposes only. 14 Because ethnic data is not always readily available, this report includes an eGFR for both -Americans and non- Americans. The National Kidney Disease Education Program (NKDEP) does not endorse the use of the MDRD equation for patients that are not between the ages of 18 and 70, are , have extremes of body size, muscle mass, or nutritional status, or are non- or non-. According to the National Kidney Foundation, irrespective of diagnosis, the stage of the disease is based on the level of kidney function: Stage Description GFR(mL/min/1.73 m(2)) 1 Kidney damage with normal or decreased GFR 90 2 Kidney damage with mild decrease in GFR 60-89 3 Moderate decrease in GFR 30-59 4 Severe decrease in GFR 15-29 5 Kidney failure <15 (or dialysis) 15 Reference Range and Interpretation: TnI (ng/mL) Interpretation Less Than 0.03 ng/mL Not supportive of diagnosis of [place] 0.03 - 0.50 ng/mL Indeterminate: suggest serial studies if clinically indicated. Greater than 0.5 ng/mL Consistent with diagnosis of [place] 16 FASTING 17 FASTING 18 FASTING 19 FASTING 20 Because ethnic data is not always readily available, this report includes an eGFR for both -Americans and non- Americans. The National Kidney Disease Education Program (NKDEP) does not endorse the use of the MDRD equation for patients that are not between the ages of 18 and 70, are , have extremes of body size, muscle mass, or nutritional status, or are non- or non-. According to the National Kidney Foundation, irrespective of diagnosis, the stage of the disease is based on the level of kidney function: Stage Description GFR(mL/min/1.73 m(2)) 1 Kidney damage with normal or decreased GFR 90 2 Kidney damage with mild decrease in GFR 60-89 3 Moderate decrease in GFR 30-59 4 Severe decrease in GFR 15-29 5 Kidney failure <15 (or dialysis) 21 Desirable <150 Borderline high 150-199 High 200-499 Very High >500 22 Desirable <200 Borderline high 200-239 High >239 23 Low <40 Desirable: 40-60 High: >60 24 Desirable: <100 mg/dL Near Optimal: 100-129 mg/dL Borderline High: 130-159 mg/dL High: 160-189 mg/dL Very High: >189 mg/dL 25 Acute inflammation: >10.00 26 Acute inflammation: >10.00 27 Because ethnic data is not always readily available, this report includes an eGFR for both -Americans and non- Americans. The National Kidney Disease Education Program (NKDEP) does not endorse the use of the MDRD equation for patients that are not between the ages of 18 and 70, are , have extremes of body size, muscle mass, or nutritional status, or are non- or non-. According to the National Kidney Foundation, irrespective of diagnosis, the stage of the disease is based on the level of kidney function: Stage Description GFR(mL/min/1.73 m(2)) 1 Kidney damage with normal or decreased GFR 90 2 Kidney damage with mild decrease in GFR 60-89 3 Moderate decrease in GFR 30-59 4 Severe decrease in GFR 15-29 5 Kidney failure <15 (or dialysis) 28 Female urine specimens have been self-validated by [facility] and have been granted conditional assay approval by [facility]. 29 This assay does not differentiate between reactivity due to a vaccine-induced immune response or an immune response induced by infection with HBV. 30 It is recognized that currently available assays for the detection of antibodies to HIV-1 and/or HIV-2 may not detect all infected individuals. HIV antibodies may be undetectable in some stages of the infection and in some clinical conditions. The performance of this assay has not been established for populations of infants or children. Assayed by Chemiluminescence Microparticle Immunoassay on the Siemens Advia Centaur CP. Values obtained with different methods or kits cannot be used interchangeably.The diagnostic specificity of the ADVIA Centaur 1/O/2 Enhanced assay in the low risk population was 99.90% (6052/6058) with a 95% confidence interval of 99.78 to 99.96%. 31 Because ethnic data is not always readily available, this report includes an eGFR for both -Americans and non- Americans. The National Kidney Disease Education Program (NKDEP) does not endorse the use of the MDRD equation for patients that are not between the ages of 18 and 70, are , have extremes of body size, muscle mass, or nutritional status, or are non- or non-. According to the National Kidney Foundation, irrespective of diagnosis, the stage of the disease is based on the level of kidney function: Stage Description GFR(mL/min/1.73 m(2)) 1 Kidney damage with normal or decreased GFR 90 2 Kidney damage with mild decrease in GFR 60-89 3 Moderate decrease in GFR 30-59 4 Severe decrease in GFR 15-29 5 Kidney failure <15 (or dialysis) 32 Because ethnic data is not always readily available, this report includes an eGFR for both -Americans and non- Americans. The National Kidney Disease Education Program (NKDEP) does not endorse the use of the MDRD equation for patients that are not between the ages of 18 and 70, are , have extremes of body size, muscle mass, or nutritional status, or are non- or non-. According to the National Kidney Foundation, irrespective of diagnosis, the stage of the disease is based on the level of kidney function: Stage Description GFR(mL/min/1.73 m(2)) 1 Kidney damage with normal or decreased GFR 90 2 Kidney damage with mild decrease in GFR 60-89 3 Moderate decrease in GFR 30-59 4 Severe decrease in GFR 15-29 5 Kidney failure <15 (or dialysis) 33 Acute inflammation: >10.00 34 Acute inflammation: >10.00 35 Because ethnic data is not always readily available, this report includes an eGFR for both -Americans and non- Americans. The National Kidney Disease Education Program (NKDEP) does not endorse the use of the MDRD equation for patients that are not between the ages of 18 and 70, are , have extremes of body size, muscle mass, or nutritional status, or are non- or non-. According to the National Kidney Foundation, irrespective of diagnosis, the stage of the disease is based on the level of kidney function: Stage Description GFR(mL/min/1.73 m(2)) 1 Kidney damage with normal or decreased GFR 90 2 Kidney damage with mild decrease in GFR 60-89 3 Moderate decrease in GFR 30-59 4 Severe decrease in GFR 15-29 5 Kidney failure <15 (or dialysis) 36 Test Performed by: [place] [address] Curing Finisher: Ab Feldman II, M.D., Ph.D. 37 Because ethnic data is not always readily available, this report includes an eGFR for both -Americans and non- Americans. The National Kidney Disease Education Program (NKDEP) does not endorse the use of the MDRD equation for patients that are not between the ages of 18 and 70, are , have extremes of body size, muscle mass, or nutritional status, or are non- or non-. According to the National Kidney Foundation, irrespective of diagnosis, the stage of the disease is based on the level of kidney function: Stage Description GFR(mL/min/1.73 m(2)) 1 Kidney damage with normal or decreased GFR 90 2 Kidney damage with mild decrease in GFR 60-89 3 Moderate decrease in GFR 30-59 4 Severe decrease in GFR 15-29 5 Kidney failure <15 (or dialysis) 38 Acute inflammation: >10.00 39 RUN DATE: 12/16/14 [facility] LIVE PAGE 1 RUN TIME: 1375 [address] [place], [place] [address] Specimen Inquiry Name: AB CAMPBELL : [address]: Jluis Morrow MD Acct: [id number] Unit: [id number] AGE: 54 Location: OR Re12/16/14 SEX: M Status: REG SDC SPEC: [id number] ESTRELLITA: 12/16/[address]: Jluis Morrow MD REQ: [id number] RECD: 12/16/14 STATUS: RES OTHR DR: Tomasa Douglas MD _ SOURCE: [facility] SPDESC:OTHER ORDERED: Culture Stain QUERIES: Specimen Description LEFT ANKLE DEEP CULTURE Procedure Result Verified Site Wound/Misc Gram Stain Final 12/16/14- 543 ML 4+ Neutrophils 2+ Gram Positive Cocci Wound/Misc Culture PENDING END OF REPORT * ML=Testing performed at Main Lab DEPARTMENT OF PATHOLOGY, [address] [place] [address] Ozzy Navarro M.D. Director [facility] # [id number] 40 Reference Range and Interpretation: TnI (ng/mL) Interpretation Less Than 0.03 ng/mL Not supportive of diagnosis of [place] 0.03 - 0.50 ng/mL Indeterminate: suggest serial studies if clinically indicated. Greater than 0.5 ng/mL Consistent with diagnosis of [place] 41 Please note: Effective November 13, 2014, the reference value for this test has changed due to the validation and activation of a new reagent lot number. 42 >100 to <200 pg/mL: likely compensated congestive heart failure (CHF) 200 to 400 pg/mL: likely moderate CHF >400 pg/mL: likely moderate to severe CHF [facility] 43 Because ethnic data is not always readily available, this report includes an eGFR for both -Americans and non- Americans. The National Kidney Disease Education Program (NKDEP) does not endorse the use of the MDRD equation for patients that are not between the ages of 18 and 70, are , have extremes of body size, muscle mass, or nutritional status, or are non- or non-. According to the National [facility], irrespective of diagnosis, the stage of the disease is based on the level of kidney function: Stage Description GFR(mL/min/1.73 m(2)) 1 Kidney damage with normal or decreased GFR 90 2 Kidney damage with mild decrease in GFR 60-89 3 Moderate decrease in GFR 30-59 4 Severe decrease in GFR 15-29 5 Kidney failure <15 (or dialysis) 44 Reference Range and Interpretation: TnI (ng/mL) Interpretation Less Than 0.03 ng/mL Not supportive of diagnosis of [place] 0.03 - 0.50 ng/mL Indeterminate: suggest serial studies if clinically indicated. Greater than 0.5 ng/mL Consistent with diagnosis of [place] 45 REFERENCE VALUE Athyrotic <0.1 Intact Thyroid <=33 46 Thyroglobulin (Tg) levels must be interpreted in the context of TSH levels, serial Tg measurements and radioiodine ablation status. Tg levels of > or=10 ng/mL in athyrotic individuals on suppressive therapy indicate a significant (>25%) risk of clinically detectable recurrent papillary/follicular thyroid cancer. ADDITIONAL INFORMATION PLEASE NOTE: Thyroglobulin flagging is based on athyrotic reference values. The thyroglobulin and thyroglobulin antibody testing methods are immunoenzymatic assays manufactured by [employer]. and performed on the Zlio DXI 800. Values obtained from different assay methods or kits may be different and cannot be used interchangeably. The results cannot be interpreted as absolute evidence for the presence or absence of malignant disease. Test Performed by: [place] [address] Curing Finisher: Prosper Littlejohn M.D. 47 Potassium reference range changed effective 08/18/14 48 Because ethnic data is not always readily available, this report includes an eGFR for both -Americans and non- Americans. The National Kidney Disease Education Program (NKDEP) does not endorse the use of the MDRD equation for patients that are not between the ages of 18 and 70, are , have extremes of body size, muscle mass, or nutritional status, or are non- or non-. According to the National Kid[employer] Foundation, irrespective of diagnosis, the stage of the disease is based on the level of kidney function: Stage Description GFR(mL/min/1.73 m(2)) 1 Kidney damage with normal or decreased GFR 90 2 Kidney damage with mild decrease in GFR 60-89 3 Moderate decrease in GFR 30-59 4 Severe decrease in GFR 15-29 5 Kidney failure <15 (or dialysis) 49 RUN DATE: 08/19/14 [facility] LAB LIVE PAGE 1 RUN TIME: [address] [place] [id number] Specimen Inquiry Name: AB CAMPBELL : [address]: Nicole PATTON Acct: [id number] Unit: [id number] AGE: 54 Location: [facility] Re08/16/14 SEX: M Status: REG REF SPEC: [id number] ESTRELLITA: 08/16/141205 SUBM DR: Nicole PATTON REQ: [id number] RECD: 08/16/144 STATUS: COMP _ SOURCE: WOUND SPDESC:ANKLE LEFT ORDERED: Anaerobic Cult Procedure Result Verified Site Anaerobic Culture Final 08/19/14- 0828 ML Organism 1 PEPTOSTREPTOCOCCI SPP Quantity 3+ Anaerobic sensitivities are not routinely performed. Positive isolates will be saved for one week. Please call the Microbiology Laboratory if susceptibility testing is needed. END OF REPORT * ML=Testing performed at Main Lab DEPARTMENT OF PATHOLOGY, [facility] [employer] [place], [place] [address] Ozzy Navarro M.D. Director [facility] # [id number] RUN DATE: 08/19/14 [facility] LAB LIVE PAGE 1 RUN TIME: 2201 [facility] [employer] [place], [place] [address] Specimen Inquiry Name: AB CAMPBELL : [address]: Nicole PATTON Acct: [id number] Unit: [id number] AGE: 54 Location: [facility] Re08/16/14 SEX: M Status: REG REF SPEC: [id number] ESTRELLITA: 08/16/14-[address]: Nicole PATTON REQ: [id number] RECD: 08/16/14 STATUS: COMP _ SOURCE: ANKLE LEFT SPDESC: ORDERED: Culture Stain QUERIES: Specimen Description LEFT ANKLE WOUND Procedure Result Verified Site Wound/Misc Gram Stain Final 08/16/14- 1657 ML 4+ Neutrophils 4+ Gram Negative Bacilli 4+ Gram Positive Cocci Wound/Misc Culture Final 08/19/14- 0824 ML Organism 1 STAPHYLOCOCCUS AUREUS Quantity 3+ Organism 2 SERRATIA MARCESCENS Quantity 3+ 1. STAPHYLOCOCCUS AUREUS M.I.C. RX --------- ------ Penicillin R Clindamycin <=0.25 S Erythromycin <=0.25 S Gentamicin <=0.5 S Linezolid 2 S Nitrofurantoin <=16 S Oxacillin <=0.25 S * Quinupristin/Dalfopristin <=0.25 S Rifampin <=0.5 S Tetracycline <=1 S Doxycycline - Deduced S * Minocycline - Deduced S Trimethoprim/Sulfamethoxazole <=10 S Vancomycin 1 S CONTINUED ON NEXT PAGE * ML=Testing performed at Main Lab DEPARTMENT OF PATHOLOGY, [facility] [employer] [place], [place] [address] Ozzy Navarro M.D. Director [facility] # [id number] RUN DATE: 08/19/14 [facility] LAB LIVE PAGE 2 RUN TIME: 824 [facility] [place], [place] [address] Specimen Inquiry Patient: AB CAMPBELL [id number] (Continued) Specimen: [id number] Collected: 08/16/14120 Received: 08/16/14-1250 (Continued) Procedure Result Verified Site Wound/Misc Culture Final (continued) 08/19/14- 823 1. STAPHYLOCOCCUS AUREUS (continued) M.I.C. RX --------- ------ Imipenem-Deduced S * Ampicillin/Sulbactam-Deduced S Cefazolin-Deduced S 2. SERRATIA MARCESCENS M.I.C. RX --------- ------ Cefazolin >=64 R Cefepime <=1 S Ceftriaxone <=1 S Ciprofloxacin <=0.25 S Gentamicin <=1 S Levofloxacin 0.25 S Meropenem <=0.25 S Nitrofurantoin 256 R Tetracycline >=16 R Trimethoprim/Sulfamethoxazole <=20 S Amoxicillin/Clavulanic Acid R Aztreonam <=1 S * These antibiotics are not available in the [facility] Formulary Contact the Microbiology Department for any additional antibiotic reporting. Contact the Microbiology Department for any additional antibiotic reporting. END OF REPORT * ML=Testing performed at Main Lab DEPARTMENT OF PATHOLOGY, [address] [place] [address] Ozzy Navarro M.D. Director [facility] # [id number] Procedures Date CPT Code Description Status 01/02/2018 54121 EKG Tracing & Interpretation Completed 11/07/2017 12136 Interrogation Implant Cardiovasc Monitor System Incl Completed Analysis Int 11/07/2017 29819 Interrogation Implant Cardiovasc Monitor System Incl Completed Analysis Int 11/07/2017 89277 Icd Eval W/Iterative Adjustmnt Single Lead Icd Completed 11/07/2017 52317 Icd Eval W/Iterative Adjustmnt Single Lead Icd Completed 08/04/2017 95680 Interrogation Implant Cardiovasc Monitor System Incl Completed Analysis Int 08/04/2017 05078 Icd Eval W/Iterative Adjustmnt Single Lead Icd Completed 12/24/2016 54034 Interrogation Implant Cardiovasc Monitor System Incl Completed Analysis Int 12/24/2016 96995 Icd eval w/iterative adjment single lead Icd Completed 05/12/2016 72671 Interrogation Implant Cardiovasc Monitor System Incl Completed Analysis Int 05/12/2016 11565 Icd Eval W/Iterative Adjustmnt Single Lead Icd Completed 12/12/2015 13763 EKG Tracing & Interpretation Completed 10/22/2015 44641 Icd Check Single,Dual Or Multiple In Person W/ Incl Completed Heart Rhyth 01/29/2015 61538 Icd Check Single,Dual Or Multiple In Person W/ Incl Completed Heart Rhyth 01/14/2015 27099 ECHO Transthoracic, Real-Time 2D With Doppler And Color Completed Flow 12/16/2014 97331 Removal Implant Deep Wire,Screw Nail,Grady Or Plate Completed 12/10/2014 11807 EKG, Interpretation Only Completed 10/21/2014 32398 Icd Check Single,Dual Or Multiple In Person W/ Incl Completed Heart Rhyth 08/27/2014 78805 Icd Check Single,Dual Or Multiple In Person W/ Incl Completed Heart Rhyth 08/16/2014 34819 EKG, Interpretation Only Completed 08/16/2014 28176 Rad Exam; Ankle Limited Completed 07/12/2014 18741 application of short leg splint Completed 07/12/2014 89833 application of short leg splint Completed 07/12/2014 71983 Rad Exam; Ankle Comp Completed 07/12/2014 60210 Rad Exam; Ankle Comp Completed 07/02/2014 52754 application of short leg splint Completed 07/02/2014 97702 application of short leg splint Completed 06/24/2014 75598 Rad Exam; Ankle Comp Completed 06/16/2014 92504 EKG, Interpretation Only Completed 06/15/2014 77798 ORIF Trimalleolar Ankle FX Medial And/Or Lateral Completed Malleolus 06/15/2014 92891 Open TX Of FX Of Weight Bearing Bith Tibia And Fibula Completed 06/15/2014 53320 Open TX Of FX Of Weight Bearing Bith Tibia And Fibula Completed 06/15/2014 03755 Open TX Of FX Of Weight Bearing Bith Tibia And Fibula Completed 06/15/2014 92974 Open TX Of FX Of Weight Bearing Bith Tibia And Fibula Completed 03/26/2013 34412 ECHO Transthoracic, Real-Time 2D With Doppler And Color Completed Flow 02/19/2013 47500 EKG Tracing & Interpretation Completed 02/15/2013 70493 Icd Check Single,Dual Or Multiple In Person W/DR Incl Completed Heart Rhyth 08/31/2012 11072 ECHO Transthoracic, Real-Time 2D With Doppler And Color Completed Flow 08/24/2012 42327 Icd Check Single,Dual Or Multiple In Person W/DR Incl Completed Heart Rhyth 06/08/2012 18193 Icd Check Single,Dual Or Multiple In Person W/DR Incl Completed Heart Rhyth 04/07/2012 86634 EKG Tracing & Interpretation Completed 03/16/2012 86183 Icd Check Single,Dual Or Multiple In Person W/DR Incl Completed Heart Rhyth 11/30/2011 90105 Icd eval w/iterative adjment single lead Icd Completed 08/27/2011 93090 EKG Tracing & Interpretation Completed 08/26/2011 27856 Icd Check Single,Dual Or Multiple In Person W/DR Incl Completed Heart Rhyth 07/14/2011 69436 EKG Tracing & Interpretation Completed 08/26/2010 65335 Selective Coronary Angioplasty Completed 08/26/2010 22558 S/I/R Inj Proc Vent And Or Atrial Completed 08/26/2010 36259 Coronary Angiography Completed 08/26/2010 67404 Coronary Angiography Completed 08/26/2010 99582 Inj Proc LFT Vent/LFT Atrl Angio Completed 08/26/2010 70487 Com RT And LT Catheterization Completed 08/25/2010 60333 ECHO Transthorasic Realtime 2D W Doppler & Color Completed Flow Hosp 08/25/2010 76862 Pulse Wave/Continuous-Interp.RPT Completed 08/25/2010 70499 Color Flow Doppler/Interp & Reprt Completed 02/03/2010 66217 ECHO Transthoracic, Real-Time 2D With Doppler And Color Completed Flow 08/14/2009 51795 EKG Tracing & Interpretation Completed 12/27/2008 49102 Color Doppler Completed 12/27/2008 60492 Pulse Doppler & Continuous Wave Completed 12/27/2008 16058 Echocardiogram Completed 12/27/2008 64586 ECHO Transthoracic, Real-Time 2D With Doppler And Color Completed Flow 06/10/2008 85706 EKG Tracing & Interpretation Completed 05/30/2008 97311 Echocardiogram Completed 05/30/2008 18932 Echocardiogram Completed 05/30/2008 89279 Pulse Doppler & Continuous Wave Completed 05/30/2008 92645 Pulse Doppler & Continuous Wave Completed 05/30/2008 29557 Pulse Doppler & Continuous Wave Completed 05/30/2008 39755 Color Doppler Completed 05/30/2008 45971 Color Doppler Completed 11/24/2007 56941 Echocardiogram Completed 11/24/2007 44845 Echocardiogram Completed 11/24/2007 55687 Echocardiogram Completed 11/24/2007 34559 Pulse Doppler & Continuous Wave Completed 11/24/2007 21862 Pulse Doppler & Continuous Wave Completed 11/24/2007 09690 Color Doppler Completed 11/24/2007 75966 Color Doppler Completed 11/24/2007 68824 Color Doppler Completed 09/06/2007 10383 EKG Tracing & Interpretation Completed 07/07/2007 40525 Color Doppler Completed 07/07/2007 98358 Color Doppler Completed 07/07/2007 43591 Pulse Doppler & Continuous Wave Completed 07/07/2007 07734 Pulse Doppler & Continuous Wave Completed 07/07/2007 64222 Pulse Doppler & Continuous Wave Completed 07/07/2007 09238 Echocardiogram Completed 07/07/2007 71706 Echocardiogram Completed Encounters Type Date Location Provider CPT E/M Dx Office Visit 01/02/2018 11:00a [facility] Susana Wilburn, 09722 I42.9 M.DSabrina Z95.810 E05.90 I36.1 Office Visit 10/20/2017 10:10a [facility] Tomasa Douglas 13897 E05.90 - David Avila T38.2x5A Z23 Office Visit 12/24/2016 8:40a [facility] Susana Wilburn, 60701 I42.9 MJudi R53.83 I36.1 R94.31 Z95.810 Office Visit 12/13/2016 10:10a [facility] Tomasa Douglas 87084 E05.90 - David Avila Z11.4 Z11.59 F10.21 Office Visit 10/13/2016 9:50a [facility] Tomasa Douglas, 02826 E05.90 - David Avila I42.9 D64.9 K21.9 Z11.4 Office Visit 08/28/2016 2:16p [facility] Jazz Lindsey, 79441 R07.9 Assoc,pc SUPPORT SERVICES TECH Hospitalists R00.2 I42.9 I10 Office Visit 08/27/2016 2:16p [facility] Assoc,pc Dewayne Cornell, 51494 R07.9 Hospitalists N.P. R00.2 I42.9 I10 Office Visit 04/05/2016 11:50a [facility] Tomasa Douglas, 73043 E05.80 - Norah Avila E07.9 I42.9 Z13.220 K21.9 Office Visit 12/12/2015 10:20a [facility] Petertamic Wilburn, 61706 R94.31 M.DSabrina I42.9 Z95.810 Office Visit 10/24/2015 10:00a [facility] 78967 M19.072 Inga Avila Office Visit 09/16/2015 8:30a [facility] Rsahel Fuller 94207 M86.672 Infectious Diseases Margarita Rolle Office Visit 08/01/2015 9:20a [facility] 56935 M19.072 Inga Avila Office Visit 06/17/2015 8:30a [facility] Fuller 31601 730.17 Infectious Diseases Margarita Rolle Office Visit 06/13/2015 9:50a [facility] 73365 715.17 CLisa Avila Office Visit 04/25/2015 11:50a [facility] 92554 730.17 CLisa Avila Office Visit 03/18/2015 8:30a [facility] Rashel Fuller 65493 730.17 Infectious Diseases Margarita Rolle Office Visit 03/04/2015 10:30a [facility] Tomasa Douglas, 07611 794.5 Kasi Almazan M.D. 276.7 425.9 242.90 Office Visit 02/04/2015 9:50a [facility] Fernando Rolle, 43485 730.27 Infectious Diseases M.D. 041.11 Office Visit 12/31/2014 8:30a [facility] Fernando Rolle, 36331 996.67 Infectious Diseases M.D. 730.27 008.41 041.85 041.11 Office Visit 12/18/2014 10:38a [facility] Fernando Rolle, 17138 996.67 Infectious Diseases M.DSabrina 730.27 285.9 Office Visit 12/17/2014 11:57a [facility] Fernando Rolle, 24568 996.67 Infectious Diseases M.DSabrina 425.4 Office Visit 12/10/2014 12:50p [facility], Macy Kessler, 39765 786.50 Hospitalists N.P. 425.4 401.9 Office Visit 12/09/2014 12:45p [facility], Ginger Anne N.P. 07888 786.50 Hospitalists 425.4 401.9 Office Visit 12/03/2014 1:30p [facility] 20591 824.8 C.M.A. Office Visit 11/08/2014 9:45a [facility] 17745 998.31 C.MStephanie Avila V54.09 823.82 Office Visit 10/15/2014 1:30p [facility] 60573 824.8 C.M.Olaf MJudi V58.31 V54.09 823.82 998.31 Office Visit 09/25/2014 11:00a [facility] 84897 824.8 C.M.A. Office Visit 08/29/2014 12:00p [facility] Susana Sky 28372 425.4 Margarita Wilburn 785.0 427.42 Office Visit 08/19/2014 9:10a [facility] Fernando Fuller Sariah, 12161 996.66 Infectious Diseases M.Jonny 996.66 041.11 041.11 041.84 041.84 041.85 041.85 425.4 V45.01 V45.02 Office Visit 06/14/2014 7:00a [facility], 46080 824.6 C.M.A. Margarita 823.82 823.82 Office Visit 04/11/2014 9:10a [facility] Tomasa Douglas M.D. 59493 V70.0 - Greene 425.9 302.72 V76.51 Office Visit 02/20/2014 1:10p [facility] Tomasa Douglas M.D. 40841 401.1 - [place] 425.9 V77.91 302.72 Office Visit 04/09/2013 11:20a [facility] Petertaybmic Wilburn, 17599 425.9 M.D. V45.02 401.1 786.05 Office Visit 02/19/2013 9:00a [facility] Qutaybeh SSabrina Wilburn, 81000 425.9 M.D. V45.02 401.1 794.31 780.4 Office Visit 04/07/2012 9:00a [facility] Petertaybeh SSabrina Wilburn, 90821 425.9 M.D. V45.02 401.1 794.31 Office Visit 08/27/2011 11:00a [facility] Qutaybeh SSabrina Wilburn, 62460 425.9 M.D. 794.31 401.1 V45.02 Office Visit 07/14/2011 11:00a [facility] Qutaybeh SSabrina Wilburn, 29811 786.05 M.D. 401.1 425.9 794.31 Office Visit 08/27/2010 11:12a [facility] Qutaybeh SSabrina Wilburn, 08757 786.05 M.D. 786.50 425.9 401.1 Office Visit 08/26/2010 10:57a [facility] Qutaybeh SSabrina Wilburn, 53326 794.31 M.D. 428.23 425.9 401.0 Office Visit 08/25/2010 8:45a [facility] Qutaybmic S. Sophiaydah, 85790 786.05 M.D. 786.50 428.23 425.9 401.1 Office Visit 04/23/2010 11:10a [facility] Qutaybeh S. haydah, 93371 425.9 M.D. 424.0 401.1 Office Visit 08/14/2009 3:20p [facility] Qutaybeh S. haydah, 33243 425.9 M.D. 424.0 401.1 Office Visit 06/10/2008 3:00p [facility] Qutaybeh S. haydah, 14366 425.9 M.D. 424.0 401.1 Office Visit 12/07/2007 9:00a [facility] Qutaybmic S. Sophiaydah, 10285 425.9 M.D. 424.0 401.0 786.05 Office Visit 11/27/2007 11:30a [facility] Qutaybmic S. Brynah, 25525 425.9 M.D. 424.0 401.0 786.05 Office Visit 09/06/2007 9:40a [facility] Qutaybmic S. Sophiaydah, 01841 425.9 M.D. 424.0 401.0 786.05 Plan of Care Future Appointment(s):02/22/2018 9:30 am - Tootie Kessler MD at [facility]02/10/2018 8:00 am - ABDI Cisneros at [facility]02/10/2018 8:00 am - Tootie Kessler MD at [facility]02/06/2018 10:45 am - Pacemaker Schedule at [facility] - Meagan Ansari, NPE05.20 Thyrotxcosis w toxic multinod goiter w/o thyrotoxic crisisFollow up:NEEDS POSTOP APPT WITH CLF 5/7Z01.818 Encounter for other preprocedural examination
--- OUTSIDE RECORDS SUMMARY | 2018-02-08 07:00 | XMS REPORT ---
:1960 External Reference #:[id number] Author Organization [employer] Address [address] [address] Phone [phone] Care Team Providers Name Role Phone Tomasa Douglas MD Primary Care Physician Unavailable Payers Type Date Identification Numbers Payment Provider Subscriber Medicare Primary Policy Number: [id number] Medicare Trevor Campbell PayID: [id number] [address] [place] [address] Medigap Part B Expires: 2017 Policy Number: [id number] Medicaid Trevor Campbell Group Name: 1 1 [address] PayID: [id number] [place] [address] Medigap Part B Expires: 2017 Policy Number: Medicare Trevor Campbell [id number] PayID: [id number] [address] [place] [address] Medigap Part B Expires: 2016 Policy Number: Medicare Trevor Campbell [id number] PayID: [id number] [address] [place] [address] Medigap Part B Effective: 2016 Policy Number: Medicaid Trevor Campbell [id number] Expires: 2017 Group Name: 1 1 [address] PayID: [id number] [place] [address] Medigap Part B Effective: 2016 Policy Number: Medicaid Trevor Campbell [id number] Group Name: 1 1 [address] PayID: [id number] [place] [address] Problems Date Description Provider Status Onset: 08/27/2011 [...] Form Strength Qnty SIG Indications Ordering Provider Methimazole 10/20/ Active Tablets 10mg 30tabs once a E05.90 Tomasa 2017 shiela Douglas M.D. Lisinopril 10/08/ Active Tablets 10mg 30tabs 1 by Tomasa 2015 hayley Douglas, every day M.D. Omeprazole 04/05/ Active Capsules 40mg 60caps take one K21.[address] monica Douglas, by mouth M.DSabrina twice a day Amlodipine / Active Tablets 10mg 30tabs take 1 Tomasa Besylate 0000 tablet by Stella mouth M.D. every day Metoprolol / Active Tablets ER 50mg 45tabs 1 by Qutaybeh Succinate ER 0000 24HR mouth am S. and 1/2 Maghaydah pm , M.D. Meloxicam / Active Tablets 15mg 30tabs take 1 Tomasa 0000 tablet by hayley Douglas M.DSabrina once every day with food as needed for pain Spironolactone / Active Tablets 25mg 90tabs Take 1 Tomasa 0000 Tablet By Hayley Douglas M.D. Every Day Digoxin / Active Tablets 125mcg 30tabs Take 1 Tomasa 0000 Tablet By Hayley Douglas M.D. Every Day Methimazole 10/15/ Hx Tablets 10mg 90tabs 2 tab Tomasa 2015 - every 8 Stella, 10/20/ hrs M.D. 2017 Methimazole 10/08/ Hx Tablets 5mg 15 mg tid Tomasa 2015 - Stella, 10/15/ M.D. 2015 Ibuprofen 05/06/ Hx Tablets 800mg 90tabs 1 by Jluis 2015 - mouth Cristhian, 10/13/ three M.D. 2016 times a day as needed Methimazole 04/15/ Hx Tablets 5mg 30tabs take 1 Tomasa 2015 - tablet by Stella, 10/08/ mouth M.DSabrina 2015 every day Methimazole 03/20/ Hx Tablets 5mg 30tabs 1 tab Tomasa 2014 - daily Stella, 12/11/ M.D. 2015 Hydrocodone-Acet 12/27/ Hx Tablets 10-325mg 60tabs 1 tab by Jluis aminokevin 2014 - mouth Cristhian, 04/05/ twice M.D. 2016 daily as needed Pemberton 12/03/ Hx Tablets 5-325mg 60tabs 1 by Benjie 2014 - mouth Ashley, 06/30/ every 6 M.D. 2015 hours as needed Bactrim DS 10/15/ Hx Tablets 800-160mg 28tabs 2 tabs by Jluis Montero - mouth Cristhian, 12/25/ twice a M.D. 2015 day x 7 days Gabapentin 09/25/ Hx Capsules 300mg 60caps 1-2 tabs Jluis 2013 - po qhs Cristhian, 12/11/ M.D. 2016 Ibuprofen 07/05/ Hx Tablets 800mg 90tabs 1 by Jluis Montero - mouth Cristhian, 12/11/ three M.D. 2016 times a day as needed Pemberton 06/24/ Hx Tablets 5-325mg 60tabs 1 by Jluis Montero - mouth Cristhian, 04/05/ twice a M.D. 2016 day as needed Lisinopril 07/14/ Hx Tablets 20mg 90tabs take 1 Tomasa 2010 - tablet by Stella, 10/08/ mouth M.D. 2016 every day Atenolol 11/27/ Hx Tablets 25mg 90tabs 1 PO qd Qutaybmic 2007 - S. 07/14/ Akila Orellana M.D. Zantac 09/06/ Hx Capsules 150mg 180cap 1 PO bid Qutaybeh 2006 - s prn S. 07/14/ Akila Orellana M.D. Lisinopril 09/06/ Hx Tablets 10mg 90tabs 1 PO qd Qutaybeh 2006 - S. 07/14/ Akila Orellana M.D. Aldactone 09/06/ Hx Tablets 25mg 90tabs 1 po qd Qutaybeh 2006 - S. 07/14/ Akila Orellana M.D. Toprol XL 09/06/ Hx Tablets ER 25mg 30tabs one po qd Qutaybeh 2006 - 24HR S. 09/06/ Akila Garcia M.D. Digitek 09/06/ Hx Tablets 0.125mg 90tabs 1 po qd Qutaybeh 2006 - S. 02/20/ Akila Montero M.D. Toprol XL 09/06/ Hx Tablets ER 25mg 60tabs 1 po bid Qutaybeh 2006 - 24HR S. 09/06/ Akila Garcia M.D. Atenolol 09/06/ Hx Tablets 25mg 60tabs 1 PO bid Qutaybeh 2006 - S. 11/27/ Akila Landry M.D. Spironolactone / Hx Tablets 25mg 1 po qd Unknown 0000 - 2010 Clobetasol / Hx Cream 0.05% 60gm apply to Unknown Propionate E 0000 - rash 2 x 02/20/ per day 2013 Q // Hx Tablets 600mg 90tabs 1 po q Unknown 0000 - 8hours 02/20/ prn 2013 Percocet / Hx Tablets 5-325mg 40tabs 1-2 po Unknown 0000 - q4-6h prn 02/19/ pain 2013 Bactrim DS / Hx Tablets 800-160mg 14tabs 1 po bid Unknown 0000 - for 7 02/19/ days 2012 Bactrim DS / Hx Tablets 800-160mg 1 by Unknown 0000 - mouth 09/16/ twice a 2014 day x 6 wks Furosemide / Hx Tablets 20mg 60tabs Take 1 Tomasa 0000 - Tablet By Stella 12/12/ Mouth M.DSabrina 2015 Every Day Ranitidine HCL / Hx Capsules 150mg 60caps Take One Tomasa 0000 - Capsule Stella 04/05/ By Mouth M.DSabrina 2015 Twice A Day Bisoprolol / Hx Tablets 5mg 60tabs take 1 Tomasa Fumarate 0000 - tablet by Stella 10/08/ mouth M.DSabrina 2015 twice a day Immunizations CPT Code Status Date Vaccine Lot # [id number] Given 07/12/2017 Influenza Virus Vaccine, Quadrivalent, Split, Preservative Free 81151 Given 12/14/2016 Tdap - Tetanus/Diptheria/Acellular Pertussis [id number] Given 08/04/2016 Influenza Virus Vaccine, Quadrivalent, Split Virus, Im Use [id number] Given 07/03/2015 Fluzone Vaccine 17538 Given Unknown Pneumonia Vaccine Vital Signs Date Vital Result Comment 01/10/2018 Height 68 inches 5'8" Weight 162.00 [...] developed and its performance characteristics determined by [facility] in a manner consistent with CLIA requirements. This test has not been cleared or approved by the U.S. Food and Drug Administration. 7 ADDITIONAL INFORMATION Testing performed by Liquid Chromatography-Tandem Mass Spectrometry (LC-MS/MS). This test was developed and its performance characteristics determined by [facility] in a manner consistent with CLIA requirements. This test has not been cleared or approved by the U.S. Food and Drug Administration. Test Performed by: [facility] [address] [place] [address] 8 Because ethnic data is not always [...] reflexed to mass spectrometry confirmation/quantitation testing. An [employer] unconfirmed positive screen result may be useful [...] use. Test developed and characteristics determined by [facility] See Compliance Statement B: [employer] Test Performed by: [facility] [address] [place] [address] [email or web address] Ramon Mclaughlin MD - Director of Laboratories [...] 0.03 ng/mL Not supportive of diagnosis of [place] 0.03 - 0.50 ng/mL Indeterminate: suggest serial studies if clinically indicated. Greater than 0.5 ng/mL Consistent with diagnosis of VA 13 The urine specimen was tested at [...] 0.03 ng/mL Not supportive of diagnosis of VA 0.03 - 0.50 ng/mL Indeterminate: suggest serial studies if clinically indicated. Greater than 0.5 ng/mL Consistent with diagnosis of VA 16 FASTING 17 FASTING 18 FASTING 19 [...] Female urine specimens have been self-validated by [facility] and have been granted conditional assay approval by [facility]. 29 This assay does not differentiate [...] <15 (or dialysis) 36 Test Performed by: [address] [address] [address] Worker: Ab Feldman II, M.D., Ph.D. 37 Because [...] Acute inflammation: >10.00 39 RUN DATE: 12/16/14 [facility] LAB LIVE PAGE 1 RUN TIME: 1739 [address] [place], [place] [address] Specimen Inquiry Name: AB CAMPBELL : [address]: Jluis Morrow MD Acct: [id number] Unit: [id number] AGE: 54 Location: OR Re12/16/14 SEX: M Status: REG SDC SPEC: [id number] ESTRELLITA: 12/16/[address]: Jluis Morrow MD REQ: [id number] RECD: 12/16/14 STATUS: RES OTHR DR: Tomasa Douglas MD _ SOURCE: MISC SOURC SPDESC:OTHER ORDERED: Culture Stain QUERIES: Specimen Description LEFT ANKLE DEEP CULTURE Procedure Result Verified Site Wound/Misc Gram Stain Final 12/16/14 9525 ML 4+ Neutrophils 2+ Gram Positive Cocci Wound/Misc Culture PENDING END OF REPORT * ML=Testing performed at Main Lab DEPARTMENT OF PATHOLOGY, [address] [place] [address] Ozzy Navarro M.D. Director [facility] # [id number] 40 Reference Range and Interpretation: TnI (ng/mL) Interpretation Less Than 0.03 ng/mL Not supportive of diagnosis of VA 0.03 - 0.50 ng/mL Indeterminate: suggest serial studies if clinically indicated. Greater than 0.5 ng/mL Consistent with diagnosis of [place] 41 Please note: Effective November 13, 2014, the reference value for this test has changed due to the validation and activation of a new reagent lot number. 42 >100 to <200 pg/mL: likely compensated congestive heart failure (CHF) 200 to 400 pg/mL: likely moderate CHF >400 pg/mL: likely moderate to severe CHF [place] [facility] 43 Because ethnic data is not [...] 0.03 ng/mL Not supportive of diagnosis of [place] 0.03 - 0.50 ng/mL Indeterminate: suggest serial studies if clinically indicated. Greater than 0.5 ng/mL Consistent with diagnosis of [place] 45 REFERENCE VALUE Athyrotic <0.1 Intact Thyroid [...] testing methods are immunoenzymatic assays manufactured by [employer] and performed on the [employer] DXI 800. Values obtained from different assay methods or kits may be different and cannot be used interchangeably. The results cannot be interpreted as absolute evidence for the presence or absence of malignant disease. Test Performed by: [address] [address] [address] Worker: Prosper Littlejohn M.D. 47 Potassium reference range [...] <15 (or dialysis) 49 RUN DATE: 08/19/14 [facility] LAB LIVE PAGE 1 RUN TIME: [address] [place] [address] Specimen Inquiry Name: AB CAMPBELL Piotr : [address]: Nicole PATTON Acct: [id number] Unit: [id number] AGE: 54 Location: [facility] Re08/16/14 SEX: M Status: REG REF SPEC: [id number] ESTRELLITA: 08/16/14-[address]: Nicole PATTON REQ: [id number] RECD: 08/16/14-1250 STATUS: COMP _ SOURCE: WOUND SPDESC:ANKLE LEFT ORDERED: Anaerobic Cult Procedure Result Verified Site Anaerobic Culture Final 08/19/14- 0828 ML Organism 1 PEPTOSTREPTOCOCCI SPP Quantity 3+ Anaerobic sensitivities are not routinely performed. Positive isolates will be saved for one week. Please call the Microbiology Laboratory if susceptibility testing is needed. END OF REPORT * ML=Testing performed at Main Lab DEPARTMENT OF PATHOLOGY, [facility] [place][note 2] [email or web address] [place], [place] [address] Ozzy Navarro M.D. Director [facility] # [id number] 50 RUN DATE: 08/19/14 [facility] LAB LIVE PAGE 1 RUN TIME: 824 [facility] [place][note 2] [employer] [place], [place] [address] Specimen Inquiry Name: AB CAMPBELL : [address]: Nicole PATTON Acct: [id number] Unit: [id number] AGE: 54 Location: [facility] Re08/16/14 SEX: M Status: REG REF SPEC: [id number] ESTRELLITA: 08/16/14-[address]: Nicole PATTON REQ: [id number] RECD: 08/16/14 STATUS: COMP _ SOURCE: ANKLE LEFT SPDESC: ORDERED: Culture Stain QUERIES: Specimen Description LEFT ANKLE WOUND Procedure Result Verified Site Wound/Misc Gram Stain Final 08/16/14- 1657 ML 4+ Neutrophils 4+ Gram Negative Bacilli 4+ Gram Positive Cocci Wound/Misc Culture Final 08/19/14- 823 ML Organism 1 STAPHYLOCOCCUS AUREUS Quantity 3+ [...] performed at Main Lab DEPARTMENT OF PATHOLOGY, [facility] [place][note 2] [email or web address] [place], [place] [address] Ozzy Navarro M.D. Director [facility] # [id number] RUN DATE: 08/19/14 [facility] LAB LIVE PAGE 2 RUN TIME: [address] [place] [address] Specimen Inquiry Patient: [id number] [id number] (Continued) Specimen: [id number] Collected: 08/16/14120 Received: 08/16/14 (Continued) Procedure Result Verified Site Wound/Misc Culture Final (continued) 08/19/14823 1. STAPHYLOCOCCUS AUREUS (continued) M.I.C. RX --------- [...] These antibiotics are not available in the [facility] Formulary Contact the Microbiology Department for any additional antibiotic reporting. Contact the Microbiology Department for any additional antibiotic reporting. END OF REPORT * ML=Testing performed at Main Lab DEPARTMENT OF PATHOLOGY, [address] [place] [address] Ozzy Navarro M.D. Director [facility] # [id number] Procedures Date CPT Code Description Status 01/02/2018 88595 EKG Tracing & Interpretation Completed 11/07/2017 36766 Interrogation Implant Cardiovasc Monitor System Incl Completed Analysis Int 11/07/2017 44120 Interrogation Implant Cardiovasc Monitor System Incl Completed Analysis Int 11/07/2017 63918 Icd Eval W/Iterative Adjustmnt Single Lead Icd Completed 11/07/2017 46860 Icd Eval W/Iterative Adjustmnt Single Lead Icd Completed 08/04/2017 55783 Interrogation Implant Cardiovasc Monitor System Incl Completed Analysis Int 08/04/2017 12411 Icd Eval W/Iterative Adjustmnt Single Lead Icd Completed 12/24/2016 90286 Interrogation Implant Cardiovasc Monitor System Incl Completed Analysis Int 12/24/2016 34549 Icd eval w/iterative adjment single lead Icd Completed 05/12/2016 06240 Interrogation Implant Cardiovasc Monitor System Incl Completed Analysis Int 05/12/2016 05125 Icd Eval W/Iterative Adjustmnt Single Lead Icd Completed 12/12/2015 95975 EKG Tracing & Interpretation Completed 10/22/2015 20794 Icd Check Single,Dual Or Multiple In Person W/DR Incl Completed Heart Rhyth 01/29/2015 65283 Icd Check Single,Dual Or Multiple In Person W/DR Incl Completed Heart Rhyth 01/14/2015 47492 ECHO Transthoracic, Real-Time 2D With Doppler And Color Completed Flow 12/16/2014 88218 Removal Implant Deep Wire,Screw Nail,Grady Or Plate Completed 12/10/2014 15631 EKG, Interpretation Only Completed 10/21/2014 07659 Icd Check Single,Dual Or Multiple In Person W/DR Incl Completed Heart Rhyth 08/27/2014 79092 Icd Check Single,Dual Or Multiple In Person W/DR Incl Completed Heart Rhyth 08/16/2014 65774 EKG, Interpretation Only Completed 08/16/2014 64335 Rad Exam; Ankle Limited Completed 07/12/2014 90000 application of short leg splint Completed 07/12/2014 99279 application of short leg splint Completed 07/12/2014 09854 Rad Exam; Ankle Comp Completed 07/12/2014 20551 Rad Exam; Ankle Comp Completed 07/02/2014 05374 application of short leg splint Completed 07/02/2014 94236 application of short leg splint Completed 06/24/2014 62770 Rad Exam; Ankle Comp Completed 06/16/2014 66096 EKG, Interpretation Only Completed 06/15/2014 51036 ORIF Trimalleolar Ankle FX Medial And/Or Lateral Completed Malleolus 06/15/2014 74399 Open TX Of FX Of Weight Bearing Bith Tibia And Fibula Completed 06/15/2014 00424 Open TX Of FX Of Weight Bearing Bith Tibia And Fibula Completed 06/15/2014 41261 Open TX Of FX Of Weight Bearing Bith Tibia And Fibula Completed 06/15/2014 53152 Open TX Of FX Of Weight Bearing Bith Tibia And Fibula Completed 03/26/2013 02471 ECHO Transthoracic, Real-Time 2D With Doppler And Color Completed Flow 02/19/2013 94946 EKG Tracing & Interpretation Completed 02/15/2013 27139 Icd Check Single,Dual Or Multiple In Person W/DR Incl Completed Heart Rhyth 08/31/2012 14149 ECHO Transthoracic, Real-Time 2D With Doppler And Color Completed Flow 08/24/2012 00011 Icd Check Single,Dual Or Multiple In Person W/DR Incl Completed Heart Rhyth 06/08/2012 98262 Icd Check Single,Dual Or Multiple In Person W/DR Incl Completed Heart Rhyth 04/07/2012 36929 EKG Tracing & Interpretation Completed 03/16/2012 36568 Icd Check Single,Dual Or Multiple In Person W/DR Incl Completed Heart Rhyth 11/30/2011 19288 Icd eval w/iterative adjment single lead Icd Completed 08/27/2011 18391 EKG Tracing & Interpretation Completed 08/26/2011 74179 Icd Check Single,Dual Or Multiple In Person W/DR Incl Completed Heart Rhyth 07/14/2011 55039 EKG Tracing & Interpretation Completed 08/26/2010 35762 Selective Coronary Angioplasty Completed 08/26/2010 47382 S/I/R Inj Proc Vent And Or Atrial Completed 08/26/2010 84325 Coronary Angiography Completed 08/26/2010 71235 Coronary Angiography Completed 08/26/2010 04007 Inj Proc LFT Vent/LFT Atrl Angio Completed 08/26/2010 63736 Com RT And LT Catheterization Completed 08/25/2010 16297 ECHO Transthorasic Realtime 2D W Doppler & Color Completed Flow Hosp 08/25/2010 33732 Pulse Wave/Continuous-Interp.RPT Completed 08/25/2010 01393 Color Flow Doppler/Interp & Reprt Completed 02/03/2010 26395 ECHO Transthoracic, Real-Time 2D With Doppler And Color Completed Flow 08/14/2009 72712 EKG Tracing & Interpretation Completed 12/27/2008 07935 Color Doppler Completed 12/27/2008 85757 Pulse Doppler & Continuous Wave Completed 12/27/2008 57993 Echocardiogram Completed 12/27/2008 46508 ECHO Transthoracic, Real-Time 2D With Doppler And Color Completed Flow 06/10/2008 31904 EKG Tracing & Interpretation Completed 05/30/2008 83076 Echocardiogram Completed 05/30/2008 32799 Echocardiogram Completed 05/30/2008 85701 Pulse Doppler & Continuous Wave Completed 05/30/2008 83043 Pulse Doppler & Continuous Wave Completed 05/30/2008 98884 Pulse Doppler & Continuous Wave Completed 05/30/2008 62929 Color Doppler Completed 05/30/2008 61995 Color Doppler Completed 11/24/2007 19851 Echocardiogram Completed 11/24/2007 58746 Echocardiogram Completed 11/24/2007 86095 Echocardiogram Completed 11/24/2007 95036 Pulse Doppler & Continuous Wave Completed 11/24/2007 69293 Pulse Doppler & Continuous Wave Completed 11/24/2007 37260 Color Doppler Completed 11/24/2007 56032 Color Doppler Completed 11/24/2007 55401 Color Doppler Completed 09/06/2007 59585 EKG Tracing & Interpretation Completed 07/07/2007 57074 Color Doppler Completed 07/07/2007 53864 Color Doppler Completed 07/07/2007 30890 Pulse Doppler & Continuous Wave Completed 07/07/2007 00891 Pulse Doppler & Continuous Wave Completed 07/07/2007 83236 Pulse Doppler & Continuous Wave Completed 07/07/2007 78939 Echocardiogram Completed 07/07/2007 87239 Echocardiogram Completed Encounters Type Date Location Provider CPT E/M Dx Office Visit 10/20/2017 [facility] Internal Medicine Tomasa Douglas M.D. 14785 E05.90 10:10a - David T38.2x5A Z23 Office Visit 12/24/2016 8:40a [facility] Susana Wilburn 03831 I42.Susi Avila R53.83 I36.1 R94.31 Z95.810 Office Visit 12/13/2016 10:10a [facility] Internal Medicine Tomasa Douglas 70621 E05.90 Kasi Hernandez M.D. Z11.4 Z11.59 F10.21 Office Visit 10/13/2016 9:50a [facility] Internal Medicine Tomasa Douglas 26560 E05.90 Kasi Hernandez M.D. I42.9 D64.9 K21.9 Z11.4 Office Visit 08/28/2016 2:16p [facility] Jazz Portillo, 92749 R07.9 Assoc, GOVERNMENT AFFAIRS MANAGER Hospitalists R00.2 I42.9 I10 Office Visit 08/27/2016 2:16p [facility], Dewayne Cornell, 49928 R07.9 Hospitalists N.P. R00.2 I42.9 I10 Office Visit 04/05/2016 11:50a [facility] Medicine Tomasa Stella, 82182 E05.80 - Norah Avila E07.9 I42.9 Z13.220 K21.9 Office Visit 12/12/2015 10:20a [facility] Susana Wilburn, 77978 R94.31 MJudi I42.9 Z95.810 Office Visit 10/24/2015 10:00a [facility], 92218 M19.072 C.MStephanie Avila Office Visit 09/16/2015 8:30a [facility] Rashel Fuller 34379 M86.672 Infectious Misbah Rolle M.D. Office Visit 08/01/2015 9:20a [facility], 21838 M19.072 CSabrinaMStephanie Avila Office Visit 06/17/2015 8:30a [facility] Rashel Fuller 83648 730.17 Infectious Misbah Rolle M.D. Office Visit 06/13/2015 9:50a [facility] Cristhian, 20092 715.17 C.Penny Avila Office Visit 04/25/2015 11:50a [facility], 54261 730.17 C.Penny Avila Office Visit 03/18/2015 8:30a [facility] Moriah Fuller 53382 730.17 Infectious Misbah Rolle M.D. Office Visit 03/04/2015 10:30a [facility] Medicine Tomasa Stella, 18417 794.5 - Norah Avila 276.7 425.9 242.90 Office Visit 02/04/2015 9:50a [facility] Rashel Rolle 75985 730.27 Infectious Misbah Avila 041.11 Office Visit 12/31/2014 8:30a [facility] Moriah Rolle 30095 996.67 Infectious Misbah Avila 730.27 008.41 041.85 041.11 Office Visit 12/18/2014 10:38a [facility] Moriah King DSabrina Sariah, 47513 996.67 Infectious Diseases M.D. 730.27 285.9 Office Visit 12/17/2014 11:57a [facility] Fernando Jonny Festuskarldenice, 69340 996.67 Infectious Diseases M.D. 425.4 Office Visit 12/10/2014 12:50p [facility], Macy Kessler, 38483 786.50 Hospitalists N.P. 425.4 401.9 Office Visit 12/09/2014 12:45p [facility], Ginger Anne N.P. 08645 786.50 Hospitalists 425.4 401.9 Office Visit 12/03/2014 1:30p [facility] 45754 824.8 C.M.A. Office Visit 11/08/2014 9:45a [facility] 05166 998.31 C.M.Romina. MJudi V54.09 823.82 Office Visit 10/15/2014 1:30p [facility] 42909 824.8 C.M.A. M.DSabrina V58.31 V54.09 823.82 998.31 Office Visit 09/25/2014 11:00a [facility] 68532 824.8 C.M.A. Office Visit 08/29/2014 12:00p [facility]. 81379 425.4 Margarita Wilburn 785.0 427.42 Office Visit 08/19/2014 9:10a [facility] Fernando Jonny Sariah, 73905 996.66 Infectious Diseases M.D. 996.66 041.11 041.11 041.84 041.84 041.85 041.85 425.4 V45.01 V45.02 Office Visit 06/14/2014 7:00a [facility], 77746 824.6 C.M.A. M.DSabrina 823.82 823.82 Office Visit 04/11/2014 9:10a [facility] Internal Medicine Tomasa Douglas M.D. 87825 V70.0 - [place] 425.9 302.72 V76.51 Office Visit 02/20/2014 1:10p [facility] Tomasa Douglas M.D. 91627 401.1 - [place] 425.9 V77.91 302.72 Office Visit 04/09/2013 11:20a [facility] Qutaybeh S. Maghaydah, 36547 425.9 M.D. V45.02 401.1 786.05 Office Visit 02/19/2013 9:00a [facility] Qutaybeh S. Maghaydah, 97848 425.9 M.D. V45.02 401.1 794.31 780.4 Office Visit 04/07/2012 9:00a [facility] Qutaybeh S. Maghaydah, 42276 425.9 M.D. V45.02 401.1 794.31 Office Visit 08/27/2011 11:00a [facility] Qutaybeh S. Maghaydah, 12550 425.9 M.D. 794.31 401.1 V45.02 Office Visit 07/14/2011 11:00a [facility] Qutaybeh S. Maghaydah, 83039 786.05 M.D. 401.1 425.9 794.31 Office Visit 08/27/2010 11:12a [facility] Qutaybeh S. Maghaydah, 01256 786.05 M.D. 786.50 425.9 401.1 Office Visit 08/26/2010 10:57a [facility] Qutaybeh S. Maghaydah, 30836 794.31 M.D. 428.23 425.9 401.0 Office Visit 08/25/2010 8:45a [facility] Qutaybeh S. Maghaydah, 63730 786.05 M.D. 786.50 428.23 425.9 401.1 Office Visit 04/23/2010 11:10a [facility] Qutaybeh S. Maghaydah, 34381 425.9 M.D. 424.0 401.1 Office Visit 08/14/2009 3:20p [facility] Qutaybeh S. Maghaydah, 03774 425.9 M.D. 424.0 401.1 Office Visit 06/10/2008 3:00p [facility] Juhimic Clemente, 05192 425.9 M.D. 424.0 401.1 Office Visit 12/07/2007 9:00a [facility] Petertacitlaly Sinha. Akila, 56906 425.9 M.D. 424.0 401.0 786.05 Office Visit 11/27/2007 11:30a [facility] Asya Clement[facility], 15781 425.9 M.D. 424.0 401.0 786.05 Office Visit 09/06/2007 9:40a [facility] Juhimic Wilburn, 58196 425.9 M.D. 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
[2018-02-08 08:02] LABS: ABS Basophils 0 10^3/ul (0-0.2); ABS Eosinophils 0.2 10^3/ul (0-0.6); ABS Lymphocytes 1.5 10^3/ul (1.0-4.8); ABS Monocytes 0.7 10^3/ul (0-0.8); ABS Neutrophils 3.3 10^3/ul (1.5-7.7); ABS Nucleated RBC 0 10^3/ul; Eosinophil % 2.8 % (0-6); Hematocrit 38 % (42-52); Hemoglobin 13.2 g/dl (14.0-18.0); Lymphocyte % 25.8 % (25-47); Mean Corpuscular HGB Conc 35 g/dl (31-36); Mean Corpuscular Hemoglobin 32 pg (27-31); Mean Corpuscular Volume 93 fL (80-94); Mean Platelet Volume 8.7 um3 (7.4-10.4); Nucleated Red Blood Cells % 0.1; Platelet Count 247 10^3/ul (150-450); Red Blood Count 4.12 10^6/ul (4.0-5.4); Red Cell Distribution Width 13 % (10.5-15); White Blood Count 5.7 10^3/ul (3.5-10.8)
[2018-02-08 08:18] LABS: EGFR Non-African American 56.2 (>60)
[2018-02-08 10:25] VITALS: BP 144/85
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
== END 2018-02-08 10:22 | disposition home or self-care (01) ==
LOC: ED 06:23
DX: F41.9 Anxiety disorder, unspecified (principal); I11.0 Hypertensive heart disease with heart failure; I50.9 Heart failure, unspecified; I42.9 Cardiomyopathy, unspecified; Z95.810 Presence of automatic (implantable) cardiac defibrillator; K21.9 Gastro-esophageal reflux disease without esophagitis; Z87.891 Personal history of nicotine dependence
CPT/HCPCS: 36415; 80053; 80307; 80320; 80329; 84443; 85025; 93005; 99282; G0480

== ENCOUNTER 2018-02-10 06:30 | Observation (INO) | payer MEDICARE, MEDICAID ==
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
[~2018-02-10 06:30] MED LIST: Buffered Lidocaine 0.9% SYRIN* 5 ML/SYR SYRINGE INTRADERM ONE; Dexamethasone IV* 4 MG/ML 1 ML (4 MG) IV SLOW PU ONE; Famotidine TAB* 20 MG PO ONE
[2018-02-10] MEDS ORDERED: Dexamethasone IV* 4 MG/ML 1 ML (4 MG) ONE (06:49)
[2018-02-10] MEDS ORDERED: Famotidine TAB* 20 MG ONE (06:49)
[2018-02-10] MEDS ORDERED: Heparin VIAL(*) 5000 UNITS/ML VIAL (FIVE THOUSAND) ONE (06:49)
[2018-02-10] MEDS ORDERED: Buffered Lidocaine 0.9% SYRIN* 5 ML/SYR SYRINGE ONE (06:50)
[2018-02-10] MEDS ORDERED: ceFAZolin 2 GM PREMIX (*) 2 GM/50 ML BAG IVPB ONE (06:50)
[2018-02-10] MEDS ORDERED: Mivacurium Chloride* 20 MG/10 ML VIAL IV ONE (06:57)
[2018-02-10] MEDS ORDERED: Propofol* 10 MG/ML 20 ML BTL IV PUSH ONE (06:57)
[2018-02-10] MEDS ORDERED: Lidocaine 2% PF * 5 ML VIAL ONE (06:57)
[2018-02-10] MEDS ORDERED: fentaNYL* 50 MCG/ML 2 ML VIAL (100 MCG VIAL) ONE ×2 (06:59→11:21)
[2018-02-10] MEDS ORDERED: Midazolam* 1 MG/ML 5 ML VIAL (5 MG) ONE (06:59)
[2018-02-10] MEDS ORDERED: Bupivacaine 0.25% SDV* 30 ML ONE (07:20)
[2018-02-10] MEDS ORDERED: Cisatracurium* 2 MG/ML MDV 5 ML ONE (07:47)
[2018-02-10] MEDS ORDERED: EPHEDrine (Pressors)* 50 MG/ML VIAL ONE (08:04)
[2018-02-10] MEDS ORDERED: Naloxone* 0.4 MG/ML 1 ML VIAL IV PRN (08:32)
[2018-02-10] MEDS ORDERED: oxyCODONE/Acetamin 5/325 MG* TAB PO PRN (08:32)
[2018-02-10] MEDS ORDERED: DiMENhydriNATE IV* 50 MG/ML VIAL IV PUSH PRN (08:32)
[2018-02-10] MEDS ORDERED: HYDROcodone/ACETAMIN 5-325 MG* 1 TAB PO PRN (08:32)
[2018-02-10] MEDS ORDERED: Ondansetron INJ* 2 MG/ML VIAL ONE (10:15)
[2018-02-10] MEDS: fentaNYL* 50 MCG/ML 2 ML VIAL (100 MCG VIAL) IV PRN ×2 (11:23→12:02)
--- NOTE | 2018-02-10 11:24 | BRIEFOPN ---
Brief Operative Note - Surgery Procedures: Procedures COMPREHEN INTERVIEW/EVAL (05/06/03) OTHER SKIN & SUBQ I D (08/20/97) REMOV INT FIX-TIB/FIBULA (12/16/14) TETANUS ANTITOXIN ADMINI (05/13/08) VENOUS CATHETERIZATION NEC (08/16/14) 02/10/18 Op Note Pre-op dx: hyperthyroidism Post-op dx: same Procedure: bilateral subtotal thyroidectomy Surgeon: Checo Asst: Aguilar Anesth: general EBL: 50 cc Complications: none SCDs on during surgery Abx: given pre-op Pt. tolerated procedure well and was transferred to in a stable condition. CLFoster
[2018-02-10] MEDS ORDERED: HYDROcodone/ACET. 7.5/325 LIQ* 15 ML UDC PO PRN (11:27)
--- NOTE | 2018-02-10 13:14 | OP ---
CC: [facility]; Dr. Rios Schwab; Dr. Tomasa Douglas OPERATIVE REPORT: DATE OF OPERATION: 02/10/18 DATE OF : 60 SURGEON: Tootie Kessler MD. WRECKING MECHANIC: Lauren. ANESTHESIA: General. PRE-OP DIAGNOSIS: Hypothyroidism. POST-OP DIAGNOSIS: Hypothyroidism. OPERATIVE PROCEDURE: Bilateral subtotal thyroidectomy. INDICATIONS: Mr. Campbell is a 58-year-old male recently diagnosed with hypothyroidism who is not be ing well managed with oral medication. Plans were therefore made for surgical intervention. DESCRIPTION OF PROCEDURE: He was brought to the operating room, placed on the OR table in the supine position, and given general anesthesia. The neck was prepped and draped in the usual sterile fashio n. After infiltrating with local anesthetic, an incision was made along the line that had been marke d preoperatively. Subcutaneous tissue was then divided with electrocautery through the platysma muscl e. Flaps were developed superiorly to the thyroid notch and inferiorly to the sternal notch. The st rap muscles were divided along the midline and retracted laterally at first over the right side of th e thyroid gland. Dissection was begun with sharp dissection to mobilize the muscles off the thyroid gland and once the gland was mostly exposed, it was dissected free from the trachea by identifying in dividual vessels that approached the gland from the superomedial pole. The vessels were divided betw een ligature and clips. Once the upper pole was freed up, attention was turned to the lower pole. H ere, the LigaSure was used to divide vessels reinforcing with clips when needed. Attention was turne d to the middle portion of the gland. Here a search was made for the recurrent laryngeal nerve which was positively identified and protected through the rest of the dissection. Individual vessels again were divided with LigaSure or between clips until the remaining attachments of the gland could be di vided easily and the gland rotated anteriorly and medially. A location on the gland was chosen for u sing electrocautery to divide the gland such that a small amount of tissue was left in situ adjacent to the recurrent laryngeal nerve and then the rest of the right lobe was elevated off the trachea usi ng electrocautery. It should be mentioned that search was made for parathyroid glands and a couple o f structures consistent with parathyroid glands were identified and noted to be viable through the ca se. Attention was turned to the left side. Again the strap muscles were retracted laterally off the gland and dissection was done primarily bluntly to free up the muscle from the anterior surface of th e gland and then attention was turned to the superomedial aspect of the upper pole and vessels approa ramon the gland were divided between ligature and clips until the upper pole was freed up. Then atte ntion was turned to the lower pole. Again LigaSure was used, reinforced where needed with clips to d ivide the attachments of the gland inferiorly. The middle portion was identified by rotating the gla nd medially and anteriorly and vessels here were divided either with ligature or between clips and th e recurrent laryngeal nerve and superior pole parathyroid were positively identified and noted to be protected during the case. Again a location on the gland was chosen for dividing the gland such that a small tissue was left behind in close proximity to the recurrent laryngeal nerve reducing the risk to the nerve. The rest of the gland was elevated off the trachea using electrocautery. The gland wa s removed from the trachea and handed off as a specimen labeled bilateral subtotal thyroidectomy and then hemostasis was ascertained and was achieved using clips, electrocautery, and Surgicel. Once hem ostasis appeared adequate, closure was accomplished. This was done with 3-0 Vicryl to reapproximate the strap muscles, 4-0 Vicryl was used to reapproximate the platysma muscle and the skin was closed w ith 4-0 Prolene in a subcuticular fashion. Steri-Strips and a dry fluffy dressing were applied. All sponge and instrument counts were correct. The patient tolerated the procedure well and was transfe rred to Recovery in a stable condition. [id number]/[facility] #: [id number]
[2018-02-10] MEDS ORDERED: Digoxin TAB* 0.125 MG PO SCH (17:00)
[2018-02-10] MEDS: Omeprazole CAP* 20 MG PO SCH ×2 (17:04→17:05)
[2018-02-10] MEDS ORDERED: HYDROmorphone INJ* 2 MG/ML CARPUJECT SYRINGE IV SLOW PU PRN (21:09)
[2018-02-11] MEDS: Omeprazole CAP* 20 MG PO SCH ×2 (03:31→06:55)
[2018-02-11 07:56] VITALS: BP 138/78
[2018-02-11] MEDS ORDERED: amLODIPine TAB* 5 MG PO SCH (09:00)
[2018-02-11] MEDS ORDERED: Spironolactone TAB* 25 MG PO SCH (09:00)
[2018-02-11] MEDS ORDERED: Metoprolol Succinate XL TAB* 50 MG PO SCH (09:00)
[2018-02-11] MEDS ORDERED: Lisinopril TAB* 10 MG PO SCH (09:00)
[2018-02-11] MEDS ORDERED: Acetaminophen TAB* 325 MG ONE (10:07)
[2018-02-11] MEDS ORDERED: Acetaminophen TAB* 325 MG PO PRN (10:10)
--- NOTE | 2018-02-11 10:16 | PN ---
Progress Note - Progress Note Date of Service: 02/11/18 Note: Surgery Mr. Campbell reports he feels fine. Vital Signs 02/10/18 02/10/18 02/10/18 11:02 11:03 11:05 Temperature 97.3 F Pulse Rate 75 76 Respiratory 16 17 Rate Blood Pressure 168/91 156/94 (mmHg) O2 Sat by Pulse 100 100 100 Oximetry 02/10/18 02/10/18 02/10/18 11:10 11:15 11:20 Temperature Pulse Rate 72 74 75 Respiratory 15 15 17 Rate Blood Pressure 154/92 153/93 160/93 (mmHg) O2 Sat by Pulse 100 100 100 Oximetry 02/10/18 02/10/18 02/10/18 11:23 11:25 11:30 Temperature Pulse Rate 75 Respiratory 18 16 14 Rate Blood Pressure 153/92 (mmHg) O2 Sat by Pulse 100 Oximetry 02/10/18 02/10/18 02/10/18 11:33 11:45 12:00 Temperature Pulse Rate 81 81 Respiratory 18 15 12 Rate Blood Pressure 152/83 126/88 (mmHg) O2 Sat by Pulse 100 100 Oximetry 02/10/18 02/10/18 02/10/18 12:02 12:15 12:30 Temperature Pulse Rate 77 79 Respiratory 18 16 18 Rate Blood Pressure 139/82 144/80 (mmHg) O2 Sat by Pulse 100 99 Oximetry 02/10/18 02/10/18 02/10/18 12:46 12:47 14:07 Temperature 97.1 F 97.1 F 98.3 F Pulse Rate 76 76 82 Respiratory 16 16 16 Rate Blood Pressure 131/62 131/62 125/49 (mmHg) O2 Sat by Pulse 97 97 99 Oximetry 02/10/18 02/10/18 02/10/18 14:48 16:51 17:20 Temperature 97.4 F 98.0 F Pulse Rate 81 76 Respiratory 16 20 18 Rate Blood Pressure 141/82 113/53 (mmHg) O2 Sat by Pulse 97 99 Oximetry 02/10/18 02/10/18 02/10/18 19:16 20:19 20:50 Temperature 98.4 F Pulse Rate 81 Respiratory 16 20 20 Rate Blood Pressure 133/68 (mmHg) O2 Sat by Pulse 100 Oximetry 02/10/18 02/10/18 02/10/18 21:24 22:42 23:57 Temperature 98.0 F Pulse Rate 71 Respiratory 18 18 16 Rate Blood Pressure 122/69 (mmHg) O2 Sat by Pulse 100 Oximetry 02/11/18 02/11/18 02/11/18 04:00 07:26 07:55 Temperature 97.8 F 98.1 F Pulse Rate 72 60 Respiratory 16 16 16 Rate Blood Pressure 142/75 138/78 (mmHg) O2 Sat by Pulse 99 100 Oximetry Voice: hoarse Incision: clean and dry, no signs infection neuro: neg [place] sign Intake & Output 02/10/18 02/11/18 02/11/18 22:59 06:59 14:59 Intake Total 120 100 Output Total 500 775 0 Balance -380 -375 0 Intake: Oral 120 100 Output: Urine 500 775 0 Laboratory Results - last 24 hr 02/10/18 02/10/18 02/11/18 11:17 17:34 00:02 Calcium 8.6 9.1 8.6 02/11/18 05:57 Calcium 8.7 A/P: Doing well s/p bilateral subtotal thyroidectomy. Can go home on synthroid. CLFoster
[2018-02-11] MEDS ORDERED: Levothyroxine TAB* 125 MCG TAB PO SCH (10:30)
--- NOTE | 2018-02-16 22:14 | DS ---
DISCHARGE SUMMARY: DATE OF ADMISSION: 02/10/18 DATE OF DISCHARGE: 02/11/18 ADMISSION DIAGNOSIS: Thyrotoxicosis. DISCHARGE DIAGNOSIS: Thyrotoxicosis. PROCEDURE: Subtotal bilateral thyroidectomy done on the date of admission. HOSPITAL COURSE: Mr. Campbell is a 58-year-old gentleman who has hyperthyroidism prompting the plan for surgical intervention. Please see admission history and physical for details of findings at the time of admission. He underwent surgery on the date of admission without difficulty and was admitted overnight for calcium monitoring. He has stable calcium during his hospitalization, and therefore the next morning was considered stable for discharge. He was discharged to home with instructions to follow up as an outpatient. [id number]/[facility] #: [id number] MTDD
== END 2018-02-11 11:00 | disposition home or self-care (01) ==
LOC: OR 06:30 → SSU 12:46 → INTOOBSV 12:46
PROVIDERS: ADMIT Surgery; ATTEND Surgery
PROC: 0GBH0ZZ Excision of Right Thyroid Gland Lobe, Open Approach (ICD-10-PCS; 2018-02-10)
PROC: 0GBG0ZZ Excision of Left Thyroid Gland Lobe, Open Approach (ICD-10-PCS; principal; 2018-02-10 07:30)
DX: E05.20 Thyrotoxicosis with toxic multinodular goiter without thyrotoxic crisis or storm (principal); Z95.810 Presence of automatic (implantable) cardiac defibrillator; I11.0 Hypertensive heart disease with heart failure; I50.9 Heart failure, unspecified; K21.9 Gastro-esophageal reflux disease without esophagitis; Z79.899 Other long term (current) drug therapy; Z87.891 Personal history of nicotine dependence; I07.1 Rheumatic tricuspid insufficiency; I27.20 Pulmonary hypertension, unspecified
CPT/HCPCS: 36415; 82310; 88307; 88311; A9270-GY; G0378; J0690; J1100; J1170; J1644; J2250; J2405; J2704; J3010

== ENCOUNTER 2018-04-28 09:47 | Day surgery (SDC) | payer MEDICARE, MEDICAID ==
[~2018-04-28 09:47] MED LIST changes: -Dexamethasone IV* 4 MG/ML 1 ML (4 MG) IV SLOW PU ONE; -Famotidine TAB* 20 MG PO ONE
[2018-04-28] MEDS ORDERED: ceFAZolin 2 GM PREMIX (*) 2 GM/50 ML BAG IVPB ONE (10:00)
[2018-04-28] MEDS ORDERED: Naloxone* 0.4 MG/ML 1 ML VIAL IV PRN (11:16)
[2018-04-28] MEDS ORDERED: Lidocaine 1%* 5 ML VIAL ONE (11:36)
[2018-04-28] MEDS ORDERED: Bupivacaine 0.25% SDV PF* 10 ML VIAL INJ ONE (11:36)
[2018-04-28] MEDS ORDERED: Dexamethasone IV* 4 MG/ML 1 ML (4 MG) ONE ×2 (11:52→11:55)
[2018-04-28] MEDS ORDERED: Propofol* 10 MG/ML 20 ML BTL IV PUSH ONE (11:53)
[2018-04-28] MEDS ORDERED: Midazolam* 1 MG/ML 2 ML VIAL (2 MG) ONE (11:53)
[2018-04-28] MEDS ORDERED: fentaNYL* 50 MCG/ML 2 ML VIAL (100 MCG VIAL) ONE (11:53)
[2018-04-28] MEDS ORDERED: Acetaminop/Codeine 30 MG TAB* 1 TAB (300 MG/30 MG) ONE (13:58)
[2018-04-28 14:12] VITALS: BP 150/84
--- NOTE | 2018-04-29 02:49 | OP ---
DATE OF OPERATION: 04/28/18 - [facility] DATE OF : 60. SURGEON: Kyler Escalante DPM ANESTHESIA: MAC local. PRE-OP DIAGNOSIS: Left hallux rigidus. POST-OP DIAGNOSIS: Left hallux rigidus. OPERATIVE PROCEDURE: Cheilectomy, left first metatarsal. ESTIMATED BLOOD LOSS: 100 mL. IV FLUIDS: LR 1000 mL. DRAINS: None. SPECIMENS: Bones of left first metatarsal. DESCRIPTION OF PROCEDURE: The patient was taken to the operating room and was placed in the supine position. Time-out was called and OR team agreed. The left foot was then blocked with 10 mL of 0.25% lidocaine plain in a Mccabe block fashion at the base of the left first metatarsal. The foot was then prepped and draped in a sterile manner. The left foot was exsanguinated with an Esmarch bandage and the cuff was then inflated to 250 mmHg. Attention was then paid to the first metatarsophalangeal joint where there was a painful dorsal exostosis pressing on the overlying skin creating a painful intractable plantar keratoma that is the source of his pain, he wanted it to be removed. I went ahead and made a linear incision right over the site. It was followed by sharp and blunt dissection through the skin, dermis, epidermis, subcutaneous tissue down to a substantially thick fibrotic tissue underneath the skin down to the bone. Once the bone was identified, the periosteum was dissected and a sagittal saw was then used to remove the offending exostosis. Once it was determined that enough of the bone was removed, the procedure was then deemed completed, the wound was irrigated with sterile normal saline and the wound was closed in a layered anatomical fashion. This completed the procedure. The cuff was deflated and the patient was taken to Recovery in stable condition and he was later discharged in stable condition. I will see him in my office in 3 days. [id number]/[facility] #: [id number] SIS
== END 2018-04-28 14:12 | disposition home or self-care (01) ==
LOC: OR 09:47
PROVIDERS: ATTEND Podiatrist
DX: M20.22 Hallux rigidus, left foot (principal); Z95.810 Presence of automatic (implantable) cardiac defibrillator; I42.9 Cardiomyopathy, unspecified; I10 Essential (primary) hypertension; E11.9 Type 2 diabetes mellitus without complications; I49.02 Ventricular flutter; E05.80 Other thyrotoxicosis without thyrotoxic crisis or storm; Z87.891 Personal history of nicotine dependence; I36.1 Nonrheumatic tricuspid (valve) insufficiency
CPT/HCPCS: 88304; 88311; A9270-GY; J0690; J1100; J2250; J2704; J3010; J3490

== ENCOUNTER 2018-05-21 04:48 | Emergency (ER) | payer MEDICARE, MEDICAID ==
[2018-05-21] MEDS ORDERED: Tetracaine 0.5% OPTH.SOL 15ML* BTL ONE (05:11)
[2018-05-21] MEDS ORDERED: Fluorescein Sod TOPICAL 0.6* 0.6 MG TEST OPHTHALMIC ONE (05:12)
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
[2018-05-21] MEDS ORDERED: Tobramycin 0.3% OPHTH.OINT* 3.5 GM TUBE (OPTH OINTMENT) RIGHT EYE SCH (06:30)
[2018-05-21 06:46] VITALS: BP 160/80
[2018-05-21] MEDS ORDERED: Ciprofloxacin 0.3% OPTH.SOL* 2.5 ML BTL RIGHT EYE SCH (10:00)
== END 2018-05-21 06:45 | disposition home or self-care (01) ==
LOC: ED 04:48
DX: T15.91XA Foreign body on external eye, part unspecified, right eye, initial encounter (principal); H57.11 Ocular pain, right eye; X58.XXXA Exposure to other specified factors, initial encounter; Y92.9 Unspecified place or not applicable
CPT/HCPCS: 99282; A9270-GY

== ENCOUNTER 2022-06-24 18:32 | Observation (INO) ==
[2022-06-24 19:04] LABS: ABS Eosinophils 0.1 10^3/ul (0-0.6); ABS Lymphocytes 1.8 10^3/ul (1.0-4.8); ABS Monocytes 0.6 10^3/ul (0-0.8); ABS Neutrophils 2.8 10^3/ul (1.5-7.7); Eosinophil % 2.7 %; Hematocrit 38 % (42-52); Hemoglobin 12.3 g/dL (14.0-18.0); Lymphocyte % 32.8 %; Mean Corpuscular HGB Conc 33 g/dL (31-36); Mean Corpuscular Hemoglobin 30 pg (27-31); Mean Corpuscular Volume 92 fL (80-94); Mean Platelet Volume 8.6 fL (7.4-10.4); Nucleated Red Blood Cells % 0.1; Platelet Count 256 10^3/uL (150-450); Red Blood Count 4.13 10^6 /uL (4.18-5.48); Red Cell Distribution Width 14 % (10-15); White Blood Count 5.4 10^3/uL (3.5-10.8)
[2022-06-24 19:10] LABS: INR 1.07 (0.89-1.11)
[2022-06-24 19:52] LABS: Albumin 4.3 g/dL (3.2-5.2); Albumin/Globulin Ratio 1.3 (1-3); Calcium 9.3 mg/dL (8.6-10.3); Globulin 3.3 g/dL (2-4); Potassium 4.2 mmol/L (3.5-5.0); Total Bilirubin 0.5 mg/dL (0.2-1.0); Total Protein 7.6 g/dL (6.4-8.9); eGFR CKD-EPI 52.7 (>60)
[2022-06-24 20:33] LABS: High Sensitivity Troponin 1 Hr 9 pg/mL (<20)
[2022-06-25] MEDS ORDERED: NS 0.9% 1000 ml BAG 1,000 ML IV SCH (01:45)
[2022-06-25 06:26] LABS: ABS Eosinophils 0.2 10^3/ul (0-0.6); ABS Monocytes 0.6 10^3/ul (0-0.8); ABS Neutrophils 1.9 10^3/ul (1.5-7.7); Eosinophil % 3.8 %; Hematocrit 43 % (42-52); Hemoglobin 14.3 g/dL (14.0-18.0); Lymphocyte % 42.7 %; Mean Corpuscular HGB Conc 33 g/dL (31-36); Mean Corpuscular Hemoglobin 31 pg (27-31); Mean Corpuscular Volume 93 fL (80-94); Mean Platelet Volume 8.7 fL (7.4-10.4); Platelet Count 259 10^3/uL (150-450); Red Blood Count 4.61 10^6 /uL (4.18-5.48); Red Cell Distribution Width 13 % (10-15); White Blood Count 4.7 10^3/uL (3.5-10.8)
[2022-06-25 06:59] LABS: HDL Cholesterol 60.3 mg/dL; Potassium 4.4 mmol/L (3.5-5.0); eGFR CKD-EPI 59.4 (>60)
[2022-06-25 12:54] VITALS: BP 154/95
== END 2022-06-25 12:54 | disposition home or self-care (01) ==
LOC: ED 18:32 → EDHOLD 18:32 → SUATTDRO 06-25 01:42 → EDHOLD 06-25 12:53
PROVIDERS: ADMIT Internal Medicine; ATTEND Internal Medicine